=== PATIENT | female | born 1960 | race Caucasian/White ===

== ENCOUNTER → 2017-01-02 | Outpatient (CLI) | payer BC | END | disposition home or self-care (01) | LOC: C.LABSPEC 17:31 | PROVIDERS: ATTEND Family Medicine | DX: S81.802A Unspecified open wound, left lower leg, initial encounter (principal); X58.XXXA Exposure to other specified factors, initial encounter; Z11.59 Encounter for screening for other viral diseases ==

== ENCOUNTER → 2017-03-23 | Outpatient (CLI) | payer BC ==
[2017-03-23 17:59] LABS: CHOLESTEROL/HDL RATIO 4.8; THYROID STIMULATING HORMONE 4.58 uIu/ml (0.300-4.500)
== END ==
LOC: C.LABPBG 12:52
PROVIDERS: ATTEND Family Medicine
DX: Z13.1 Encounter for screening for diabetes mellitus (principal); Z11.59 Encounter for screening for other viral diseases; Z13.220 Encounter for screening for lipoid disorders; E03.9 Hypothyroidism, unspecified

== ENCOUNTER → 2017-10-13 | Outpatient (CLI) | payer BC | END | disposition home or self-care (01) | LOC: C.LABPBG 13:14 | PROVIDERS: ATTEND Family Medicine | DX: E03.9 Hypothyroidism, unspecified (principal) ==

== ENCOUNTER 2018-12-06 13:17 | Inpatient (IN) ==
[2018-12-06] MEDS ORDERED: methylPREDNISolone 125 MG/2 ML VIAL IV STA (13:47)
[2018-12-06] MEDS ORDERED: ALBUT/IPRATROP 3MG/0.5MG NEB 3 ML VIAL NEB STA ×3 (13:47→14:54)
--- NOTE | 2018-12-06 14:01 | Emergency Department Note ---
History of Present Illness General Chief complaint: Sinus Congestion/Pressure Stated complaint: SINUS INF Time Seen by Provider: 12/06/18 13:33 History of Present Illness Maximum Pain Intensity: 4 Patient is a 58-year-old female with past medical history significant for COPD and hypothyroidism who presents the emergency department from [facility] for evaluation of sinus congestion, productive cough and shortness of breath times several days. Patient reports that she has had some sinus congestion, stuffy and a runny nose on and off for "a while." In the last 3 to 4 days, she reports that her symptoms have settled in her chest. She reports chest tightness, shortness of breath and a cough productive of yellow sputum. She had some soreness in her chest with coughing and deep breathing yesterday, this was alleviated with ibuprofen and she has no chest pain at this time. She has been taking Mucinex. Patient is normally on Flovent and Pro Air inhalers, but she has been without her inhalers for about a week. She reports that multiple family members have been sick with similar symptoms. Patient states that she went to [facility] today, hoping to get an antibiotic, she states that they gave her a breathing treatment, and referred her to the emergency department. She was told that her oxygen saturation was low. She normally does not require oxygen. She is never been hospitalized for her COPD. Home Medications Home Medications Medication Instructions Recorded Confirmed Type Flovent HFA 1 puff INHALATION BID PRN 09/02/18 12/06/18 History albuterol sulfate [ProAir HFA] 1 - 2 puff INHALATION Q6H PRN 09/02/18 12/06/18 History clonazepam 0.5 mg PO DIRECTED PRN 09/02/18 12/06/18 History levothyroxine 200 mcg PO QAM 09/02/18 12/06/18 History guaifenesin [Mucinex] 600 mg PO Q12H PRN 12/06/18 12/06/18 History ibuprofen 200 mg PO Q6H PRN 12/06/18 12/06/18 History Allergies Allergy/AdvReac Type Severity Reaction Status Date / Time No Known Allergies Allergy Verified 12/06/18 13:34 Past Med/Surg History Medical History Anemia (Chronic) Chronic obstructive pulmonary disease (Chronic) inhalers prn Hypothyroidism (Chronic) Insomnia (Chronic) Surgical History History of appendectomy (Resolved) History of bilateral tubal ligation (Resolved) History of dacryocystorhinostomy (Resolved) right eye History of dilatation and curettage (Resolved) History of esophagogastroduodenoscopy (EGD) (Resolved) History of tonsillectomy (Resolved) History of tooth extraction (Resolved) all top teeth, some of bottom History of total abdominal hysterectomy and bilateral salpingo-oophorectomy (Resolved) History of wisdom tooth extraction (Resolved) Family History Grandfather (Paternal) Family history of diabetes mellitus Brother Family hx colonic polyps Sister Family hx colonic polyps Father Myocardial infarction Brother Myocardial infarction Stroke Other No family history of adverse response to anesthesia Social History Preferred Language: Honduran Communication Ability: Effective Beliefs That Will Affect Care: None Current Living Situation: Spouse Feels Safe at Home: Yes Smoking Status: Current every day smoker Tobacco Type: cigarettes Cigarettes Per Day: 1ppd Second Hand Exposure: Yes Hx Alcohol Use: Yes Alcohol type: beer Alcohol Intake Frequency Comment: last beer was Thursday, has "a few beers" 1-2 nights a week Hx Substance Use: No Review of Systems A total of 10 systems reviewed and were otherwise negative Physical Exam Vital Signs Vital Signs - 24 hr 12/06/18 13:25 12/06/18 13:58 12/06/18 14:33 Temperature 37.5 C Temperature Source Axillary Sepsis Recent Fever Within 48 Hours No Sepsis New/Unexplained Change in Mental Status No Sepsis Action Taken by Nursing No Action Required Pulse Rate 110 H 97 H Pulse Rate [Right Finger] 102 H Pulse Rate from SpO2 Sensor 95 H Pulse Rhythm Regular Pulse Strength Normal Respiratory Rate 22 18 20 Respiratory Effort / Characteristics Non-Labored Spontaneous Non-Labored Spontaneous Respiratory Depth Normal Respiratory Pattern Regular Blood Pressure 139/74 Blood Pressure Mean 95 Blood Pressure Position Sitting Pulse Oximetry 86 L 92 92 Oxygen Delivery Method Room Air Nasal Cannula Oxygen Flow Rate 2.5 12/06/18 14:40 12/06/18 14:57 12/06/18 15:00 Temperature Temperature Source Sepsis Recent Fever Within 48 Hours Sepsis New/Unexplained Change in Mental Status Sepsis Action Taken by Nursing Pulse Rate 101 H 103 H Pulse Rate [Right Finger] 100 H Pulse Rate from SpO2 Sensor 101 H 104 H Pulse Rhythm Pulse Strength Respiratory Rate 18 24 33 H Respiratory Effort / Characteristics Spontaneous Respiratory Depth Respiratory Pattern Blood Pressure 134/72 Blood Pressure Mean 92 Blood Pressure Position Pulse Oximetry 94 90 90 Oxygen Delivery Method Nasal Cannula Oxygen Flow Rate 2.5 12/06/18 15:16 12/06/18 16:00 Temperature Temperature Source Sepsis Recent Fever Within 48 Hours Sepsis New/Unexplained Change in Mental Status Sepsis Action Taken by Nursing Pulse Rate 108 H Pulse Rate [Right Finger] 99 H Pulse Rate from SpO2 Sensor 105 H Pulse Rhythm Pulse Strength Respiratory Rate 20 23 Respiratory Effort / Characteristics Spontaneous Respiratory Depth Respiratory Pattern Blood Pressure 134/72 Blood Pressure Mean 92 Blood Pressure Position Pulse Oximetry 93 92 Oxygen Delivery Method Nasal Cannula Oxygen Flow Rate 2.5 CONSTITUTIONAL: Patient is a 58-year-old female who is awake and alert and seated on the gurney in no acute distress. O2 sat in triage was 86%. She was on 2 L at the time of exam. O2 sat when oxygen was turned off was 88 to 89% during history and physical exam. EYES: Pupils equal, round, reactive to light and accommodation. EOMs intact without nystagmus. Sclera are anicteric. ENT: Tympanic membranes intact, with normal landmarks. External canals are clear. Oral and nasopharynx are clear. Mucous membranes are moist, no lesions, tongue and gums appear normal. CARDIOVASCULAR: Regular rate and rhythm, with normal S1 and S2, no murmur or gallop or rub is heard. No carotid bruits auscultated. No JVD. Peripheral pulses easily palpable. RESPIRATORY: Breath sounds diminished throughout, with inspiratory and expiratory wheezes noted, primarily on the right. Full and equal chest expansion without accessory muscle use or retractions. INTEGUMENTARY: No lesions or rash, normal skin turgor. LYMPH: No lymphadenopathy. EXTREMITIES: No edema. Course The patient was seen and assessed as above. Old records are reviewed. She has no recent ED visits or hospitalizations. She presents the emergency department for evaluation of a productive cough and shortness of breath. She was noted to be hypoxic in triage with O2 sat of 86%. She is roughly 88% on room air in the exam room, improves to 93% on 2-1/2 L by nasal cannula. IV lock was initiated. Laboratory studies were collected. EKG and chest x-ray were performed. The patient was given Solu-Medrol 125 mg IV and DuoNeb x3. Laboratory studies noted a white count of 14,500 with left shift and bands noted. H&H 14.6 and 42.6. Electrolytes are within normal limits. BUN and creatinine are normal. Troponin is negative x1. Chest x-ray per radiology is suggestion of bibasilar parenchymal infiltrates. EKG notes a normal sinus rhythm at 95 bpm, with nonspecific T wave abnormalities noted in the lateral leads. No old EKGs available for comparison. The patient was reassessed frequently. She was reexamined after nebulizer treatments, and did have improved air movement and decreased wheezing, but she still required oxygen. All laboratory and diagnostic imaging studies were reviewed with attending physician who concurred with the ED work-up. Given the chest x-ray findings, she was given Levaquin 750 mg and ceftriaxone 2 g IV. Wit h chest x-ray findings concerning for pneumonia, and oxygen requirement admission/observation was discussed with the patient and her spouse. Patient was reviewed with the liquor establishment manager. [facility] and [facility]. Administered Medications Acetylcysteine (Mucomyst 20%) 5 ml INH BID EBONY Stop: 01/05/19 20:59 Last Admin: 12/06/18 19:25 Dose: 5 ml Documented by: [id number] Albuterol (Duoneb) 3 ml NEB QIDR EBONY Stop: 01/05/19 19:59 Last Admin: 12/06/18 19:24 Dose: 3 ml Documented by: [id number] Methylprednisolone 60 mg/ (Syringe) 0.96 mls @ 1.5 mls/min IV BID EBONY Stop: 01/05/19 20:59 Last Admin: 12/06/18 21:07 Dose: 1.5 mls/min Documented by: [id number] Discontinued Medications Albuterol (Duoneb) 3 ml NEB NOW STA Stop: 12/06/18 13:48 Last Admin: 12/06/18 13:58 Dose: 3 ml Documented by: [id number] Albuterol (Duoneb) 3 ml NEB NOW STA Stop: 12/06/18 14:17 Last Admin: 12/06/18 14:40 Dose: 3 ml Documented by: [id number] Albuterol (Duoneb) 3 ml NEB NOW STA Stop: 12/06/18 14:55 Last Admin: 12/06/18 15:15 Dose: 3 ml Documented by: [id number] Ceftriaxone Sodium 2,000 mg/ (Dextrose) 70 mls @ 100 mls/hr IV NOW STA Stop: 12/06/18 15:35 Last Infusion: 12/06/18 16:26 Dose: 0 mls/hr Documented by: [id number] Admin: 12/06/18 15:27 Dose: 100 mls/hr Documented by: [id number] Levofloxacin/Dextrose (Levaquin/D5w) 750 mg in 150 mls @ 100 mls/hr IV NOW STA Stop: 12/06/18 16:23 Last Infusion: 12/06/18 17:24 Dose: 0 mls/hr Documented by: [id number] Admin: 12/06/18 15:54 Dose: 100 mls/hr Documented by: [id number] Methylprednisolone (Solumedrol) 125 mg IV NOW STA Stop: 12/06/18 13:48 Last Admin: 12/06/18 14:02 Dose: 125 mg Documented by: [id number] Medical Decision Making Differential Diagnosis Differential diagnosis includes acute myocardial infarction, acute coronary syndrome, myocarditis, pericarditis, pulmonary embolism, pneumonia, pneumothorax, cardiomyopathy, congestive heart failure, anemia, COPD exacerbation, among others. Medical Records Attestation: I reviewed the patient's medical records. Home Medications Current Medication List: was personally reviewed by me Laboratory Data Attestation: I reviewed the patient's lab results. Result diagrams: 12/06/18 14:00 12/06/18 14:00 Lab Results 12/06/18 12/06/18 Range/Units 14:00 14:00 WBC 14.59 H (4.8-10.8) K/uL RBC 4.50 (4.2-5.4) M/uL Hgb 14.6 (12.0-16.0) g/dL Hct 42.6 (37-47) % MCV 94.7 (80-100) fL MCH 32.4 (25-34) pg MCHC 34.3 (32-36) g/dL RDW Std Deviation 45.7 (36.4-46.3) fL RDW Coeff of Jomar 13.2 (11.5-14.5) % Plt Count 244 (130-400) K/uL MPV 9.2 (7.4-10.4) fL Immature Gran % (Auto) 0.3 % Neut % (Auto) 77.4 % Lymph % (Auto) 13.0 % [place] % (Auto) 8.6 % Eos % (Auto) 0.5 % Baso % (Auto) 0.2 % Immature Gran # (Auto) 0.05 H (0.00-0.02) K/uL Neut # (Auto) 11.29 H (1.4-6.5) K/uL Lymph # (Auto) 1.89 (1.2-3.4) K/uL Sierra # (Auto) 1.26 H (0.11-0.59) K/uL Eos # (Auto) 0.07 (0-0.5) K/uL Baso # (Auto) 0.03 (0-0.2) K/uL Sodium 136 (136-145) mmol/L Potassium 3.9 (3.5-5.1) mmol/L Chloride 98 (98-107) mmol/L Carbon Dioxide 29 (21-32) mmol/L Anion Gap 8.0 (3-11) BUN 7 (7-18) mg/dl Creatinine 0.68 (0.6-1.2) mg/dl Est Cr Clr Drug Dosing 97.9 ml/min Est GFR ( Amer) 112.5 Est GFR (Non-Af Amer) 97.1 BUN/Creatinine Ratio 9.8 L (10-20) Glucose 112 H (70-99) mg/dl Calcium 9.3 (8.5-10.1) mg/dl Troponin I < 0.015 (0-0.045) ng/ml Imaging Data Attestation: I personally reviewed and interpreted this imaging study as follows: Radiologist's Impression: XR chest 1V portable CLINICAL HISTORY: COUGH, SOB exam COMPARISON STUDY: No previous studies for comparison. FINDINGS: Mild cardiac [place]. Bibasilar interstitial infiltrates versus somewhat atypical components of congestive failure. Mid and upper lungs are co nsidered clear. IMPRESSION: Bibasilar parenchymal infiltrates versus developing atypical components of congestive heart failure ECG Data Attestation: I personally reviewed and interpreted this ECG as follows: Indication: chest pain and SOB/dyspnea Rate (beats per minute): 95 Rhythm: normal sinus Findings: + other (Nonspecific ST abnormality lateral leads); no acute ischemic change and no ectopy Comparison ECG Date: no prior available Blood Pressure Blood Pressure Findings: Normal blood pressure MDM Narrative See ED Course. Impression & Plan Pneumonia, Hypoxia, COPD exacerbation Discharge Plan Visit Data *Final* Discharge Date/Time: 12/06/18 17:59 Chief Complaint: Sinus Congestion/Pressure Stated Complaint: SINUS INF ED Provider: Terrence Longoria ED Midlevel Provider: Komal Lovelace Discharge Problem: Pneumonia, Hypoxia, COPD exacerbation Patient Disposition: Admitted As Inpatient Discharge Instructions Interventions: ED Discharge Assessment Last Done: 12/06/18 17:59
--- NOTE | 2018-12-06 14:04 | XRay Report ---
XR chest 1V portable CLINICAL HISTORY: COUGH, SOB exam COMPARISON STUDY: No previous studies for comparison. FINDINGS: Mild cardiac [place]. Bibasilar interstitial infiltrates versus somewhat atypical component s of congestive failure. Mid and upper lungs are considered clear. IMPRESSION: Bibasilar parenchymal infiltrates versus developing atypical components of congestive he art failure The above report was generated using voice recognition software. It may contain grammatical, syntax or spelling errors. Electronically signed by: Jhon Marie M.D. 12/06/2018 2:03 PM
[2018-12-06 14:10] LABS: Basophils # (auto) 0.03 K/uL (0-0.2); Basophils % (auto) 0.2 %; Eosinophils # (auto) 0.07 K/uL (0-0.5); Eosinophils % (auto) 0.5 %; Hematocrit (blood only) 42.6 % (37-47); Hemoglobin 14.6 g/dL (12.0-16.0); Immature Granulocytes # (auto) 0.05 K/uL (0.00-0.02); Immature Granulocytes % (auto) 0.3 %; Lymphocytes # (auto) 1.89 K/uL (1.2-3.4); Mean Corpuscular Hgb Conc 34.3 g/dL (32-36); Mean Corpuscular Volume 94.7 fL (80-100); Mean Platelet Volume 9.2 fL (7.4-10.4); Monocytes # (auto) 1.26 K/uL (0.11-0.59); Monocytes % (auto) 8.6 %; Neutrophils # (auto) 11.29 K/uL (1.4-6.5); Neutrophils % (auto) 77.4 %; Platelet Count 244 K/uL (130-400); RDW Coefficient of Variation 13.2 % (11.5-14.5); RDW Standard Deviation 45.7 fL (36.4-46.3); White Blood Count 14.59 K/uL (4.8-10.8)
[2018-12-06 14:26] LABS: BUN Creatinine Ratio 9.8 (10-20); Blood Urea Nitrogen 7 mg/dl (7-18); Calcium 9.3 mg/dl (8.5-10.1); Carbon Dioxide 29 mmol/L (21-32); Chloride 98 mmol/L (98-107); Creatinine Clr Calc Pharmacy 97.9 ml/min; Est GFR (African American) 112.5; Est GFR (Non-African American) 97.1; Glucose 112 mg/dl (70-99); Potassium 3.9 mmol/L (3.5-5.1); Sodium 136 mmol/L (136-145)
[2018-12-06 14:31] LABS: Troponin I < 0.015 ng/ml (0-0.045)
[2018-12-06] MEDS ORDERED: LEVOFLOXACIN/D5W 750 MG/150 ML BAG IV STA (14:54)
[2018-12-06] MEDS ORDERED: cefTRIAXone SODIUM 2,000 MG in DEXTROSE 5% 50 ML IV STA (14:54)
--- NOTE | 2018-12-06 16:31 | History & Physical Report ---
Date of Service December 06, 2018 Assessment & Plan (1) Pneumonia: Noted on CXR Started on levaquin and ceftriaxone, will continue with ceftriaxone for now WBC elevated (2) COPD exacerbation: Nebs, steroids Feeling improved in the ED Will add mucomyst Solumedrol 60mg BID (3) Hypoxia: Likely related to above Monitor on O2 No prior hx of home O2 use (4) Tobacco use disorder: Declines nicotine patch need, will order PRN (5) Hypothyroid: continue home meds (6) Anxiety: PRN clonazepam use as at home States she uses rarely and HS only (7) DVT prophylaxis: SCDs History of Present Illness Primary Care Provider: Susy Soto MD 58 y/o F who was sent to the ED from an urgent care. Pt went to the urgent care because she thought she had a sinus infection and bronchitis "because I always get those". She was seen there and sent to the ED after her O2 was found to be low. Pt states she has had a few weeks of cough, congestion, headache, and mucous production. She was taking mucinex and ibuprofen at home, but this was not helping. She has a rescue inhaler at home but she ran out of it 3-4 days ago and therefor has not been using it. Pt states she woke in the night with chest pain below her L breast that resolved with ibuprofen and has not returned. She has had some wheezing at home also. Pt was given nebs x3, levaquin, ceftriaxone, and solumedrol in the ED. She feels that her sx are improved, but still does not feel well. She feels her breathing has opened up more. Pt denies fever, abd pain, n/v/c/d, LE pain or swelling. Allergies Allergy/AdvReac Type Severity Reaction Status Date / Time No Known Allergies Allergy Verified 12/06/18 13:34 Home Medications Home Medications Medication Instructions Recorded Confirmed Type Flovent HFA 1 puff INHALATION BID PRN 09/02/18 12/06/18 History albuterol sulfate [ProAir HFA] 1 - 2 puff INHALATION Q6H PRN 09/02/18 12/06/18 History clonazepam 0.5 mg PO DIRECTED PRN 09/02/18 12/06/18 History levothyroxine 200 mcg PO QAM 09/02/18 12/06/18 History guaifenesin [Mucinex] 600 mg PO Q12H PRN 12/06/18 12/06/18 History ibuprofen 200 mg PO Q6H PRN 12/06/18 12/06/18 History Past Med/Surg History Medical History Anemia (Chronic) Chronic obstructive pulmonary disease (Chronic) inhalers prn Hypothyroidism (Chronic) Insomnia (Chronic) Surgical History History of appendectomy (Resolved) History of bilateral tubal ligation (Resolved) History of dacryocystorhinostomy (Resolved) right eye History of dilatation and curettage (Resolved) History of esophagogastroduodenoscopy (EGD) (Resolved) History of tonsillectomy (Resolved) History of tooth extraction (Resolved) all top teeth, some of bottom History of total abdominal hysterectomy and bilateral salpingo-oophorectomy (Resolved) History of wisdom tooth extraction (Resolved) Family History Grandfather (Paternal) Family history of diabetes mellitus Brother Family hx colonic polyps Sister Family hx colonic polyps Father Myocardial infarction Brother Myocardial infarction Stroke Other No family history of adverse response to anesthesia Social History Preferred Language: Spanish Communication Ability: Effective Beliefs That Will Affect Care: None Current Living Situation: Spouse Feels Safe at Home: Yes Smoking Status: Current every day smoker Tobacco Type: cigarettes Cigarettes Per Day: 1ppd Second Hand Exposure: Yes (parents smoked) Hx Alcohol Use: Yes Alcohol type: beer Alcohol Intake Frequency Comment: last beer was Thursday, has "a few beers" 1-2 nights a week Hx Substance Use: No Review of Systems Review of Systems: Pertinent positives and negatives reviewed in HPI--all others negative Physical Exam Constitutional: WD/WN, vitals as above Eyes: normal visual lira by confrontation and + anicteric sclerae Neck: normal visual inspection and trachea midline Respiratory: normal respiratory effort; no respiratory distress Auscultation: + crackles; no wheezes tight breath sounds Cardiovascular: Rate/Rhythm: regular rate and regular rhythm Gastrointestinal (Abdomen): Inspection/Auscultation: abdomen not distended Percussion/Palpation: abdomen soft; abdomen nontender Musculoskeletal: Head/Neck/Chest: normocephalic and head atraumatic negative for edema, peripheral pulses intact Skin: no rashes, warm and dry Neurologic: awake; not confused Speech / Cognition: normal speech Psychiatric: A+Ox3, euthymic affect Results & Data Vital Signs (Past 12 Hours) Vital Signs Temp Pulse Pulse Resp BP Pulse Ox 12/06/18 15:16 99 H 20 93 12/06/18 15:00 103 H 33 H 90 12/06/18 14:57 101 H 24 134/72 90 12/06/18 14:40 100 H 18 94 12/06/18 14:33 97 H 20 92 12/06/18 13:58 102 H 18 92 12/06/18 13:25 37.5 C 110 H 22 139/74 86 L Diagnostic Findings CXR: bibasliar PNA Code Status & VTE Plan Code Status Full code, although pt states no prolonged mechanical life support, feeding tubes, etc VTE Prophylaxis Plan VTE Prophylaxis will be ordered: Yes PG Care Time/CCT Total # of Minutes Spent Total Time Spent with Patient: Total time spent is greater than 50% in coordination of care (as documented) at patient's floor/unit and/or counseling patient: (1) Pneumonia Laterality: bilateral Lung location: unspecified part of lung Pneumonia type: due to unspecified organism Qualified Code(s): J18.9 - Pneumonia, unspecified organism
[2018-12-06] MEDS ORDERED: NICOTINE 21 MG/24 HR TDSY TD PRN (17:57)
[2018-12-06] MEDS ORDERED: clonazePAM 0.5 MG TAB PO PRN (17:57)
[2018-12-06] MEDS ORDERED: MAGNESIUM HYDROXIDE SUSP 30 ML UDC PO PRN (17:57)
[2018-12-06] MEDS ORDERED: FLUTICASONE HFA 110MCG INHALER INH PRN (17:57)
[2018-12-06] MEDS ORDERED: IBUPROFEN 200 MG TAB PO PRN (17:57)
[2018-12-06] MEDS ORDERED: ACETAMINOPHEN 325 MG TAB PO PRN (17:57)
[2018-12-06] MEDS ORDERED: ALBUTEROL HFA 8 GM INHALER INH PRN (17:57)
[2018-12-06] MEDS ORDERED: ONDANSETRON INJ 2 MG/ML 2 ML VIAL IV PRN (17:57)
[2018-12-06] MEDS: ALBUT/IPRATROP 3MG/0.5MG NEB 3 ML VIAL NEB SCH (19:24)
[2018-12-06] MEDS: ACETYLCYSTEINE 20% INHAL SOLN ***DISPENSED BY RESP. INH SCH (19:25)
[2018-12-06] MEDS ORDERED: ACETYLCYSTEINE 20% INHAL SOLN ***DISPENSED BY RESP. INH SCH (20:00)
[2018-12-06] MEDS: methylPREDNISolone 60 MG in SYRINGE 0 ML IV SCH (21:07)
[2018-12-07] MEDS: LEVOTHYROXINE SODIUM 200 MCG TABLET PO SCH (05:30)
[2018-12-07 06:21] LABS: Basophils # (auto) 0.01 K/uL (0-0.2); Basophils % (auto) 0.1 %; Hematocrit (blood only) 43.2 % (37-47); Hemoglobin 14.7 g/dL (12.0-16.0); Immature Granulocytes # (auto) 0.07 K/uL (0.00-0.02); Immature Granulocytes % (auto) 0.5 %; Lymphocytes # (auto) 1.28 K/uL (1.2-3.4); Lymphocytes % (auto) 9.3 %; Mean Corpuscular Volume 93.1 fL (80-100); Mean Platelet Volume 9.5 fL (7.4-10.4); Monocytes # (auto) 0.49 K/uL (0.11-0.59); Monocytes % (auto) 3.6 %; Neutrophils # (auto) 11.94 K/uL (1.4-6.5); Neutrophils % (auto) 86.5 %; Platelet Count 276 K/uL (130-400); RDW Coefficient of Variation 13.1 % (11.5-14.5); RDW Standard Deviation 44.4 fL (36.4-46.3); Red Blood Count 4.64 M/uL (4.2-5.4); White Blood Count 13.79 K/uL (4.8-10.8)
[2018-12-07] MEDS: ALBUT/IPRATROP 3MG/0.5MG NEB 3 ML VIAL NEB SCH ×4 (06:57→19:29)
[2018-12-07] MEDS: ACETYLCYSTEINE 20% INHAL SOLN ***DISPENSED BY RESP. INH SCH ×2 (06:57→19:29)
[2018-12-07] MEDS: methylPREDNISolone 60 MG in SYRINGE 0 ML IV SCH ×2 (08:11→20:55)
[2018-12-07] MEDS ORDERED: LEVOFLOXACIN/D5W 750 MG/150 ML BAG IV SCH (16:00)
--- NOTE | 2018-12-07 18:07 | Hospitalist Progress Note ---
Date of Service December 07, 2018 Assessment & Plan (1) Pneumonia: Noted on CXR with bibasilar infiltrates, with productive sputum and acute hypoxia. Is already improving -Continue Levaquin 750 mg once daily x7-day course. Will change to p.o. for tomorrow-last day would be 12/12 -Continue bronchodilators scheduled nebulizers and can discontinue acetylcysteine nebs -Collect sputum culture -Continue supplemental oxygen to keep pulse ox greater than 88-92% -Would follow chest x-ray to resolution given long smoking history to ensure infiltrates resolve (2) COPD exacerbation: With wheezing and hypoxia on examination Continues to smoke on a daily basis but is contemplating quitting -Continue nicotine patch as needed and encouraged cessation -Continue nebs, steroids - will prescribe Spiriva and Symbicort upon discharge -Also asked case management to arrange for home nebulizer and I will also prescribe her nebulized albuterol for that (3) Hypoxia: Acute respiratory failure with hypoxia secondary to COPD and pneumonia as above No prior hx of home O2 use -Continue treatment for COPD pneumonia as above - will need two-step walking test in the morning if still requiring oxygen prior to discharge to home (4) Tobacco use disorder: As above -Nicotine patch ordered as needed (5) Hypothyroid: No TSH in over a year in the lab history Continue home levothyroxine -Check TSH in the morning (6) Anxiety: PRN clonazepam use as at home States she uses rarely and HS only (7) Sinus congestion: Possibly an acute sinusitis based on symptoms she is describing -Start nasal saline -On Levaquin as above for pneumonia which should cover for sinusitis as well (8) DVT prophylaxis: SCDs, add Lovenox Disposition-much improved, still with wheezing and hypoxia throughout If continues to improve, could likely discharged home tomorrow. May need home oxygen. Subjective Patient feeling much improved, feels less short of breath. Still coughing up white to clear mucus. Her previous bilateral pleuritic type chest pain underneath the ribs and in the back is now resolved. She denies diarrhea or constipation, no abdominal pain. Has a mild headache, not lightheaded. Her appetite is good. She reports she has a family members old nebulizer at home but has no equipment or medication to use with it. She also ran out of her Symbicort and Spiriva at home and would like refills of these upon discharge. She is hopeful to go home tomorrow Review of Systems Review of Systems: All systems reviewed & are unremarkable except as noted in HPI & below Physical Exam Constitutional: WD/WN, vitals as above + morbidly obese Eyes: PERRL, conjunctivae normal, anicteric sclerae ENMT: external ear and nose normal, oropharynx normal Neck: trachea midline, no thyromegaly Respiratory: normal respiratory effort; no labored breathing Auscultation: + diminished lung sounds (throughout) and + wheezes (bilateral all lung lira,+ exp wheezes) Cardiovascular: RRR, no murmur, no edema Gastrointestinal (Abdomen): normal bowel sounds, soft, nontender, no hepatosplenomegaly Musculoskeletal: Extremities: extremities normal to inspection; no cyanosis and no clubbing Skin: no rashes, warm and dry Neurologic: moves all extremities and awake; no focal motor deficits Psychiatric: A+Ox3, euthymic affect Results & Data Vital Signs (Past 12 Hours) Vital Signs Temp Pulse Resp BP Pulse Ox 12/07/18 15:44 88 20 92 12/07/18 15:21 36.9 C 101 H 19 129/77 90 12/07/18 11:21 68 18 92 12/07/18 08:17 88 L 12/07/18 08:13 36.8 C 78 18 112/64 12/07/18 06:58 70 18 92 Laboratory Results 12/07/18 Range/Units 05:45 WBC 13.79 H (4.8-10.8) K/uL RBC 4.64 (4.2-5.4) M/uL Hgb 14.7 (12.0-16.0) g/dL Hct 43.2 (37-47) % MCV 93.1 (80-100) fL MCH 31.7 (25-34) pg MCHC 34.0 (32-36) g/dL RDW Std Deviation 44.4 (36.4-46.3) fL RDW Coeff of Jomar 13.1 (11.5-14.5) % Plt Count 276 (130-400) K/uL MPV 9.5 (7.4-10.4) fL Immature Gran % (Auto) 0.5 % Neut % (Auto) 86.5 % Lymph % (Auto) 9.3 % [place] % (Auto) 3.6 % Eos % (Auto) 0.0 % Baso % (Auto) 0.1 % Immature Gran # (Auto) 0.07 H (0.00-0.02) K/uL Neut # (Auto) 11.94 H (1.4-6.5) K/uL Lymph # (Auto) 1.28 (1.2-3.4) K/uL [place] # (Auto) 0.49 (0.11-0.59) K/uL Eos # (Auto) 0.00 (0-0.5) K/uL Baso # (Auto) 0.01 (0-0.2) K/uL Diagnostic Findings 12/07/18 Range/Units 05:45 WBC 13.79 H (4.8-10.8) K/uL RBC 4.64 (4.2-5.4) M/uL Hgb 14.7 (12.0-16.0) g/dL Hct 43.2 (37-47) % MCV 93.1 (80-100) fL MCH 31.7 (25-34) pg MCHC 34.0 (32-36) g/dL RDW Std Deviation 44.4 (36.4-46.3) fL RDW Coeff of Jomar 13.1 (11.5-14.5) % Plt Count 276 (130-400) K/uL MPV 9.5 (7.4-10.4) fL Immature Gran % (Auto) 0.5 % Neut % (Auto) 86.5 % Lymph % (Auto) 9.3 % [place] % (Auto) 3.6 % Eos % (Auto) 0.0 % Baso % (Auto) 0.1 % Immature Gran # (Auto) 0.07 H (0.00-0.02) K/uL Neut # (Auto) 11.94 H (1.4-6.5) K/uL Lymph # (Auto) 1.28 (1.2-3.4) K/uL [place] # (Auto) 0.49 (0.11-0.59) K/uL Eos # (Auto) 0.00 (0-0.5) K/uL Baso # (Auto) 0.01 (0-0.2) K/uL PG Care Time/CCT Total # of Minutes Spent Total Time Spent with Patient: Total time spent is greater than 50% in coordination of care (as documented) at patient's floor/unit and/or counseling patient: (1) Pneumonia Laterality: bilateral Lung location: unspecified part of lung Pneumonia type: due to unspecified organism Qualified Code(s): J18.9 - Pneumonia, unspecified organism
[2018-12-07] MEDS ORDERED: SODIUM CHLORIDE 0.65% NA SOLN 45 ML (OCEAN) NAE PRN (20:39)
[2018-12-07] MEDS: ENOXAPARIN INJ 40 MG/0.4 ML SYR SQ SCH (20:55)
[2018-12-08] MEDS: LEVOTHYROXINE SODIUM 200 MCG TABLET PO SCH (05:37)
[2018-12-08 06:28] LABS: Basophils # (auto) 0.01 K/uL (0-0.2); Basophils % (auto) 0.1 %; Hematocrit (blood only) 41.3 % (37-47); Hemoglobin 13.9 g/dL (12.0-16.0); Immature Granulocytes # (auto) 0.12 K/uL (0.00-0.02); Immature Granulocytes % (auto) 0.6 %; Lymphocytes # (auto) 1.24 K/uL (1.2-3.4); Lymphocytes % (auto) 6.6 %; Mean Corpuscular Hgb Conc 33.7 g/dL (32-36); Mean Platelet Volume 9.2 fL (7.4-10.4); Monocytes # (auto) 0.96 K/uL (0.11-0.59); Monocytes % (auto) 5.1 %; Neutrophils # (auto) 16.36 K/uL (1.4-6.5); Neutrophils % (auto) 87.6 %; Platelet Count 281 K/uL (130-400); RDW Coefficient of Variation 13.3 % (11.5-14.5); RDW Standard Deviation 45.4 fL (36.4-46.3); Red Blood Count 4.44 M/uL (4.2-5.4); White Blood Count 18.69 K/uL (4.8-10.8)
[2018-12-08 06:39] LABS: INR 1.1 (0.9-1.1); Prothrombin Time 11.2 Seconds (9.0-12.0)
[2018-12-08 07:00] LABS: BUN Creatinine Ratio 26.4 (10-20); Creatinine Clr Calc Pharmacy 123.3 ml/min; Est GFR (Non-African American) 100.1; Potassium 4.5 mmol/L (3.5-5.1)
[2018-12-08 07:02] VITALS: TEMP 97.7
[2018-12-08] MEDS: ALBUT/IPRATROP 3MG/0.5MG NEB 3 ML VIAL NEB SCH ×2 (07:26→11:06)
[2018-12-08] MEDS: ENOXAPARIN INJ 40 MG/0.4 ML SYR SQ SCH (08:29)
[2018-12-08] MEDS: methylPREDNISolone 60 MG in SYRINGE 0 ML IV SCH (08:30)
[2018-12-08 09:57] VITALS: O2SAT 90
[2018-12-08 11:07] VITALS: PULSE 74
--- NOTE | 2018-12-08 13:28 | Discharge Summary ---
Date of Service December 08, 2018 Admission HPI Per Admitting Provider 58 y/o F who was sent to the ED from an urgent care. Pt went to the urgent care because she thought she had a sinus infection and bronchitis "because I always get those". She was seen there and sent to the ED after her O2 was found to be low. Pt states she has had a few weeks of cough, congestion, headache, and mucous production. She was taking mucinex and ibuprofen at home, but this was not helping. She has a rescue inhaler at home but she ran out of it 3-4 days ago and therefor has not been using it. Pt states she woke in the night with chest pain below her L breast that resolved with ibuprofen and has not returned. She has had some wheezing at home also. Pt was given nebs x3, levaquin, ceftriaxone, and solumedrol in the ED. She feels that her sx are improved, but still does not feel well. She feels her breathing has opened up more. Pt denies fever, abd pain, n/v/c/d, LE pain or swelling. Principal Diagnosis Pneumonia, COPD Exacerbation Discharge Exam Constitutional WD/WN, vitals as above + morbidly obese Eyes PERRL, conjunctivae normal, anicteric sclerae ENMT external ear and nose normal, oropharynx normal Neck trachea midline, no thyromegaly Respiratory normal respiratory effort; no labored breathing Auscultation: + diminished lung sounds (throughout) and + wheezes (bilateral, faint, improved from previous) Cardiovascular RRR, no murmur, no edema Gastrointestinal (Abdomen) normal bowel sounds, soft, nontender, no hepatosplenomegaly Musculoskeletal Extremities: extremities normal to inspection; no cyanosis and no clubbing Skin no rashes, warm and dry Neurologic moves all extremities and awake; no focal motor deficits Psychiatric A+Ox3, euthymic affect Discharge Data Allergies Allergy/AdvReac Type Severity Reaction Status Date / Time No Known Allergies Allergy Verified 12/17/18 09:11 Consultations None Procedures Performed CXR Hospital Course (1) Pneumonia: Noted on CXR with bibasilar infiltrates, with productive sputum and acute hypoxia. Is continuing to be improving -Continue Levaquin 750 mg once daily x7-day course-last day would be 12/12 -Continue bronchodilators, scheduled nebulizers - sputum culture not collected due to too much saliva in sample -Continue supplemental oxygen to keep pulse ox greater than 88-92%-needs home O2 -Would follow chest x-ray to resolution given long smoking history to ensure infiltrates resolve (2) COPD exacerbation: With wheezing and hypoxia on examination-improving Continues to smoke on a daily basis but is contemplating quitting -Continue nicotine patch as needed and encouraged cessation -Continue nebs, steroids - will prescribe Spiriva and Symbicort upon discharge -Also asked case management to arrange for home nebulizer and I will also prescribe her nebulized albuterol for that (3) Hypoxia: Acute respiratory failure with hypoxia secondary to COPD and pneumonia as above No prior hx of home O2 use -Continue treatment for COPD pneumonia as above - qualifies for home O2 upon discharge-wean off as per PCP when able to (4) Tobacco use disorder: As above -Nicotine patch ordered as needed (5) Hypothyroid: TSH here is 0.3 Continue home levothyroxine -follow with PCP (6) Anxiety: PRN clonazepam use as at home States she uses rarely and HS only (7) Sinus congestion: Possibly an acute sinusitis based on symptoms she is describing -Started nasal saline, steroids -On Levaquin as above for pneumonia which should cover for sinusitis as well (8) DVT prophylaxis: SCDs, Lovenox were provided Disposition-much improved, stable for dc to home with home O2 Total Time Total Time Spent Total Time Spent (In Minutes): >30 min Total Time Includes: Examination of the Patient, Discharge Planning and Medication Reconciliation Discharge Plan Discharge Items Patient Disposition: Home - Self-Care Reason For Visit: PNA/COPD EXACERBATION Discharge Diagnosis: Pneumonia, COPD exacerbation, acute hypoxic respiratory failure Condition: Fair Discharge Goals: Decrease discomfort, Diagnostic testing, Improve disease control, Learn about illness and Therapeutic intervention Activity: As commented below Lifting: Gradually increase as tolerated Bathing: No limitations Exercise/Sports: Gradually increase as tolerated Non-emergency contact: Primary Care Provider Call non-emergency contact if: you have any medication questions, your symptoms worsen and your temperature is above 101 Follow-up/Referrals: Susy Soto MD [Primary Care Provider] - 12/17/18 9:15 am (Please, follow up at Dr. Soto's office with her associate, Dr. Fer Zarate, on ThursdayDecember 17 at 9:15 am. *If you need to change this appointment, call their office at [phone].) Diet: Regular Addtl Provider Instructions: You were admitted with low oxygen levels and found to have pneumonia and an exacerbation of your COPD. You were treated with antibiotics, nebulized medications, and steroids. Please finish out the course of antibiotics with levofloxacin 750 mg by mouth once daily for 5 more days. Please finish out a course of prednisone at 60 mg for 2 days, then 50 mg for 2 days, then 40 mg for 2 days, then 30 mg for 2 days, then 20 mg x 2 days, then 10 mg x 2 days, then stop. A nebulizer machine will be delivered to you and you can continue to use albuterol nebulizers 4 times throughout the day for the next week and then you can use them as needed for shortness of breath, cough, or wheezing. Please restart on Spiriva 1 puff once daily to be used every day, no matter how you are feeling. Follow-up with your primary care physician as scheduled for you within 1 to 2 weeks. You were started on oxygen to be used continuously. You will use 2 L at rest and 3 L with any activity or exertion. Your primary care physician can advise you as to when it is safe for you to stop using the oxygen. Above all, it is most important that you immediately quit smoking cigarettes. Prescriptions: New levofloxacin 750 mg Tablet 750 mg PO DAILY@1600 Qty: 5 RF: 0 sodium chloride [Saline Mist] 0.65 % Aerosol,[place] 2 sprays JODI Q1H PRN (Reason: nasal congestion) Qty: 30 RF: 0 prednisone 10 mg tablet 60 mg PO DAILY Qty: 42 RF: 0 Spiriva with HandiHaler 18 mcg capsule, w/inhalation device 1 cap INH DAILY Qty: 30 RF: 0 albuterol sulfate 2.5 mg /3 mL (0.083 %) solution for nebulization 2.5 mg INH QID PRN (Reason: shortness of breath or wheezing) Qty: 180 RF: 0 Continued levothyroxine 200 mcg Capsule 200 mcg PO QAM RF: 0 ibuprofen 200 mg Tablet 200 mg PO Q6H PRN (Reason: Pain) RF: 0 guaifenesin [Mucinex] 600 mg Tablet Extended Release 12hr 600 mg PO Q12H PRN (Reason: Congestion) RF: 0 Discontinued Flovent HFA 110 mcg/actuation Hfa Aerosol Inhaler 1 puff INHALATION BID PRN (Reason: Shortness Of Breath) RF: 0 No Action albuterol sulfate [ProAir HFA] 90 mcg/actuation HFA aerosol inhaler 1 - 2 puff INHALATION Q6H PRN (Reason: Shortness Of Breath) Qty: 6.7 RF: 5 clonazepam 0.5 mg tablet 0.5 mg PO DIRECTED PRN (Reason: Insomnia) Qty: 30 RF: 0 Visit Report Forms: Smoking Cessation Stand-Alone Forms: [facility] Discharge Orders: Discharge Order (Routine); Ordered 12/08/18 Ordered By: Yanet Frazier Admission Data Admit Date/Time: 12/06/18 16:21 Attending Provider: Yanet Frazier Admit Provider: Christina Dean Primary Care Provider: Susy Soto Other Providers: Christina Dean Service: Medical Other Interventions: Discharge Summary Assessment (RN) Last Done: 12/08/18 13:30 Pending Studies at Discharge: No DC Date/Time DO NOT enter until pt leaves facility: 12/08/18 14:23
[2018-12-08 13:31] VITALS: BP 126/78
[2018-12-08] MEDS ORDERED: levoFLOXacin 750 MG TAB PO SCH (16:00)
== END 2018-12-08 14:23 | disposition home or self-care (01) | DRG 193 ==
LOC: ED 13:17 → 2N 16:21 → SUATTDRO 16:21 → 2N 17:59
DX: G47.00 Insomnia, unspecified; Z83.3 Family history of diabetes mellitus; F17.210 Nicotine dependence, cigarettes, uncomplicated; J18.9 Pneumonia, unspecified organism; Z82.49 Family history of ischemic heart disease and other diseases of the circulatory system; J44.1 Chronic obstructive pulmonary disease with (acute) exacerbation; J96.01 Acute respiratory failure with hypoxia; D64.9 Anemia, unspecified; E03.9 Hypothyroidism, unspecified

== ENCOUNTER 2023-10-26 20:31 | Inpatient (IN) ==
[2023-10-26 21:14] LABS: Hematocrit (blood only) 38.9 % (37.0-47.0); Mean Corpuscular Hemoglobin 28.8 pg (25.0-34.0); Mean Corpuscular Hgb Conc 33.4 g/dL (32.0-36.0); Mean Corpuscular Volume 86.3 fL (80.0-100.0); Mean Platelet Volume 9.3 fL (9.4-12.4); Platelet Count 119 K/uL (130-400); RDW Standard Deviation 40.7 fL (36.4-46.3); Red Blood Count 4.51 M/uL (4.20-5.40); White Blood Count 11.92 K/ul (4.8-10.8)
[2023-10-26 21:32] LABS: Alanine Aminotransferase 17 U/L (7-52); Albumin Globulin Ratio 1.4 (0.9-2); Alkaline Phosphatase 108 U/L (34-104); Anion Gap 7 (3-11); Aspartate Aminotransferase 16 U/L (13-39); BUN Creatinine Ratio 14.3 (10-20); Bilirubin,Total 0.6 mg/dl (0.2-1.0); Blood Urea Nitrogen 7 mg/dl (6-23); Calcium 9.3 mg/dl (8.6-10.3); Carbon Dioxide 30 mmol/L (21-32); Chloride 97 mmol/L (98-107); Est GFR (African American) 121.9 ml/min; Est GFR (Non-African American) 105.2 ml/min; Globulin 2.9 gm/dl (2.5-4.0); Glucose 120 mg/dl (70-99(Fasting)); Potassium 4.1 mmol/L (3.5-5.1); Sodium 134 mmol/L (136-145); Total Protein 6.9 gm/dl (6.0-8.3)
[2023-10-26 21:38] LABS: Troponin I High Sensitivity 3.7 pg/ml (0-14)
[2023-10-26 21:43] LABS: Partial Thromboplastin Ratio 0.9; Partial Thromboplastin Time 25 Seconds (21-31); Prothrombin Time 10.7 Seconds (9.0-12.0)
[2023-10-26 22:25] LABS: ALC (manual) 4.53 K/uL (1.2-3.4); ANC (manual) 6.68 K/uL (1.4-6.5); Basophils # (manual) 0.12 K/uL (0-0.2); Basophils % (manual) 1 %; Eosinophils # (manual) 0.24 K/uL (0-0.50); Eosinophils % (manual) 2 %; Lymphocytes # (manual) 2.26 K/uL (1.2-3.4); Lymphocytes % (manual) 19 %; Monocytes # (manual) 0.36 K/uL (0.11-0.59); Monocytes % (manual) 3 %; Neutrophils # (manual) 6.68 K/uL (1.40-6.50); Neutrophils % (manual) 56 %; RBC Morphology Unremarkable; Reactive Lymphocytes # (manual) 2.26 K/uL; Reactive Lymphocytes % (manual) 19 %
[2023-10-27] MEDS: OPTIRAY 320 125ml IV ONE (00:41)
--- NOTE | 2023-10-27 00:42 | Emergency Department Note ---
Impression & Plan Bilateral pneumonia, Hypoxia, Abdominal aortic aneurysm, Abdominal pain, left upper quadrant Admit to the [facility] ED Provider Note NAME: HAILE ALMEIDA AGE: 62 SEX: Female INFORMANT: Patient ED PROVIDER(S): Dianna Tuttle DO CHIEF COMPLAINT: Left upper quadrant abdominal pain PLAN: Disposition: Admit to the [facility] MEDICAL DECISION MAKING: This is a 62-year-old female patient presents to the emergency department with left upper quadrant abdominal pain and left shoulder pain. The patient has a history of COPD and has had increasing shortness of breath over the past 2 days. She has noticed left upper quadrant abdominal pain, and left shoulder pain. Chest x-ray shows evidence of bibasilar infiltrates. The patient's O2 saturation was 86% with any type of exertion. She had moderate discomfort in her left upper quadrant of her abdomen which required IV analgesia for pain relief. Laboratory studies revealed mild leukocytosis with a white count of 11.8. H&H were stable. Coagulation studies were normal. Troponin was negative. On CT scan of the abdomen/pelvis, there was splenomegaly but no other findings in the left upper quadrant of the abdomen. Of note, the patient had 2 abdominal aortic aneurysms which had never been previously diagnosed. The patient does give a family history of other family members with aneurysms. For the diagnosis of bilateral pneumonias, the patient was treated with IV antibiotics. She remained on supplemental oxygen and was started on IV steroids. [facility] for [facility] care. Care/management discussed with: The patient and her along with the manager golf and the [facility] Triage Nursing notes: reviewed and agree with them. Vital Signs: reviewed and remarkable for hypertension and hypoxia Chronic Medical/Social Conditions affecting care: COPD Differential Diagnosis: Pneumonia, COPD exacerbation, splenic rupture, gastritis Diagnostics, independently interpreted by me: ECG: Normal sinus rhythm at a rate of [address] segment elevation or signs of ischemia. There is no ectopy. Cardiac Monitoring: Normal sinus rhythm at a rate of 86 Imaging studies: Portable chest x-ray: Bibasilar infiltrates as per my independent interpretation HPI: 62 year old Female arrives for evaluation of shortness of breath and left upper quadrant abdominal pain. Patient describes increasing shortness of breath and left upper quadrant abdominal pain over the past 24 hours. Patient has a longstanding history of COPD. She has a chronic occasionally productive cough. She does not wear home oxygen. Upon presentation to the ER, the patient was hypoxic with an O2 saturation of 86% with walking back to the room. PAST MEDICAL HISTORY: See Below, PAST SURGICAL HISTORY: See Below, SOCIAL HISTORY: See Below, HOME MEDICATIONS: See list ALLERGIES: None VITALS: See Below PHYSICAL EXAMINATION: HEENT: Head - normocephalic and atraumatic. Pupils are equal, round, and reactive to light. Extraocular eye muscles are intact, and sclera are anicteric. Nose - moist nasal mucosa without discharge. Mouth - moist buccal mucosa. Oropharynx is nonerythematous and there is no tonsillar exudate or edema noted. Neck: Supple; no JVD, nuchal rigidity, cervical lymphadenopathy, or auscultated bruits. Heart: Regular rate and rhythm. There is a normal S1 and S2 with no murmurs, clicks, or gallops appreciated. Lungs: Diminished breath sounds in all lung lira with minimal end expiratory wheeze. Abdomen: Soft, moderately distended with good bowel sounds. There is exquisite tenderness to palpation of the left upper quadrant of the abdomen. There is no guarding, rigidity, or rebound noted. Extremities: No evidence of cyanosis, clubbing, or edema. There are easily palpable peripheral pulses. Skin: warm and dry with good turgor and no rashes. Emergency department treatment: dough molder, supplemental oxygen, IV fentanyl, IV Zofran, IV Solu-Medrol, IV Levaquin Emergency department course: The patient was evaluated in room C8. A complete history and physical was performed. Portable chest x-ray was performed. An order was placed for continuous cardiac monitoring. The patient was in a normal sinus rhythm at a rate of 86. A twelve-lead EKG was obtained as described above. Patient remained on supplemental oxygen because of her hypoxia. She was given a dose of IV fentanyl for the pain in her left upper quadrant of her abdomen. She was given a dose of IV Zofran to prevent nausea. Patient went for CT scan of the abdomen/pelvis. She was given a dose of IV Solu-Medrol and IV Levaquin for the bilateral pulmonary infiltrates. Past Med/Surg History Problem List (Updated 10/27/23 @ 02:36 by Dianna A Botti, DO) Abdominal pain, left upper quadrant (Acute) Abdominal aortic aneurysm (Acute) Hypoxia (Acute) Bilateral pneumonia (Acute) Dyslipidemia Type 2 diabetes mellitus History of colon polyps Hypothyroidism (Chronic) COPD (chronic obstructive pulmonary disease) (Chronic) Hyperglycemia Tobacco use disorder (Chronic) Anxiety (Chronic) High triglycerides (Chronic) Medical History Anemia Anxiety Chronic obstructive pulmonary disease High triglycerides Hyperglycemia Hypothyroidism Insomnia Tobacco use disorder Surgical History History of appendectomy History of bilateral tubal ligation History of colonoscopy History of dacryocystorhinostomy History of dilatation and curettage History of esophagogastroduodenoscopy (EGD) History of hysterectomy History of tonsillectomy History of tooth extraction History of total abdominal hysterectomy and bilateral salpingo-oophorectomy History of wisdom tooth extraction Family History Grandfather (Paternal) Family history of diabetes mellitus Brother Family hx colonic polyps Sister Family hx colonic polyps Father Myocardial infarction Lung cancer Hypertension Brother Myocardial infarction Stroke Hypertension Aunt Breast cancer Mother Environmental allergies Malignant neoplasm of urinary bladder Thyroid disease Uncle Malignant neoplasm of urinary bladder Aunt Thyroid disease Other Migraines No family history of adverse response to anesthesia Denies family history of Ovarian cancer Prostate cancer Colorectal cancer Social History (Updated 01/09/23 @ 13:03 by SMITH Groves) Smoking Status: Current every day smoker Tobacco Type: Cigarettes Age Started Using Tobacco: 15; Cigarettes Per Day: 5 CIGS A DAY; Second Hand Exposure: No; Do You Dip or Chew Tobacco: No; Hx Alcohol Use: Yes Alcohol type: beer Alcohol Intake Frequency Comment: last beer was Thursday, has "a few beers" 1-2 nights a week Hx Substance Use: No Preferred Language: Georgian Communication Ability: Effective Visual Impairment: No Limitations Hearing Ability: Normal Accounts Receivable Administrator Required: No Beliefs That Will Affect Care: None marital status: Current Living Situation: Spouse current occupational status: employed current occupation: [employer] Feels Safe at Home: Yes Childhood Exposure to Second-Hand Smoke: Yes Diet: regular Dental Care, Regularly: Yes Physical Activity Frequency: 1-2 Times per Week Seatbelt Use: sometimes Sunscreen Use: Yes Assistive Devices: Denture - Upper and Glasses Allergies Allergies Allergy/AdvReac Type Severity Reaction Status Date / Time No Known Allergies Allergy Verified 10/27/23 01:51 Home Meds Home Medications Medication Instructions Recorded Confirmed guaifenesin 600 mg tablet, 600 mg PO Q12H PRN Congestion 12/06/18 10/27/23 extended release 12 hr (Mucinex) ibuprofen 200 mg tablet 200 mg PO Q6H PRN Pain 12/06/18 10/27/23 Previous Rx's Medication Instructions Recorded sodium chloride 0.65 % nasal spray 2 sprays JODI Q1H PRN nasal 12/08/18 aerosol (Saline Mist) congestion #30 mL albuterol sulfate 90 mcg/actuation 1 - 2 puff inhalation Q6H PRN 10/04/21 aerosol inhaler (ProAir HFA) Shortness Of Breath #6.7 grams albuterol sulfate 2.5 mg/3 mL 2.5 mg (3 mL) inhalation QID PRN 10/10/22 (0.083 %) solution for nebulization shortness of breath or wheezing #180 mL atorvastatin 20 mg tablet 20 mg PO QPM #90 tabs 07/17/23 levothyroxine 200 mcg tablet 200 mcg PO DAILY #90 tabs 07/17/23 prednisone 10 mg tablet See Rx Instructions PO DAILY #30 07/17/23 tabs umeclidinium 62.5 mcg/actuation 1 inh inhalation Q24H #30 ea 07/30/23 blister powder for inhalation (Incruse Ellipta) Results & Data (ED) Vital Signs Vital Signs - 24 hr 10/26/23 20:32 10/26/23 22:00 10/26/23 22:01 Temperature 36.6 C Temperature Source Temporal Artery Scan Pulse Rate 100 H 85 Pulse Rate [Apical] Pulse Rhythm Pulse Rhythm [Apical] Pulse Strength [Apical] Respiratory Rate 22 Respiratory Effort / Characteristics Non-Labored Respiratory Depth Normal Respiratory Pattern Regular Blood Pressure 147/75 H Blood Pressure [Right Arm] Blood Pressure Mean 99 Blood Pressure Mean [Right Arm] Blood Pressure Position [Right Arm] Pulse Oximetry 90 86 L Oxygen Delivery Method Room Air Room Air Oxygen Flow Rate 0 Sepsis Recent Fever Within 48 Hours No Sepsis New/Unexplained Change in Mental Status N/A Sepsis Action Taken by Nursing No Action Required Oxygen Flow Rate - Titration 2 Pulse Oximetry Post Tiitration 93 05/20/24 22:01 10/26/23 22:12 10/27/23 01:49 Temperature Temperature Source Pulse Rate 82 82 Pulse Rate [Apical] 80 Pulse Rhythm Regular Pulse Rhythm [Apical] Regular Pulse Strength [Apical] Normal Respiratory Rate 20 Respiratory Effort / Characteristics Non-Labored Spontaneous Respiratory Depth Normal Respiratory Pattern Regular Blood Pressure Blood Pressure [Right Arm] 172/143 H Blood Pressure Mean Blood Pressure Mean [Right Arm] 152 Blood Pressure Position [Right Arm] Sitting Pulse Oximetry 93 97 Oxygen Delivery Method Nasal Cannula Nasal Cannula Oxygen Flow Rate 2 2 Sepsis Recent Fever Within 48 Hours Sepsis New/Unexplained Change in Mental Status Sepsis Action Taken by Nursing Oxygen Flow Rate - Titration Pulse Oximetry Post Tiitration Laboratory Data 10/26/23 20:45 10/26/23 20:45 Lab Results 10/26/23 Range/Units 20:45 WBC 11.92 H (4.8-10.8) K/ul RBC 4.51 (4.20-5.40) M/uL Hgb 13.0 (12.0-16.0) g/dl Hct 38.9 (37.0-47.0) % MCV 86.3 (80.0-100.0) fL MCH 28.8 (25.0-34.0) pg MCHC 33.4 (32.0-36.0) g/dL RDW Std Deviation 40.7 (36.4-46.3) fL RDW Coeff of Jomar 13.0 (11.5-14.5) % Plt Count 119 L (130-400) K/uL MPV 9.3 L (9.4-12.4) fL Neutrophils % (Manual) 56 % Lymphocytes % (Manual) 19 % Reactive Lymphs % (Man) 19 % Monocytes % (Manual) 3 % Eosinophils % (Manual) 2 % Basophils % (Manual) 1 % Neutrophils # (Manual) 6.68 H (1.40-6.50) K/uL Total Absolute Neuts 6.68 H (1.4-6.5) K/uL Lymphocytes # (Manual) 2.26 (1.2-3.4) K/uL Reactive Lymphs # 2.26 K/uL Total Abs Lymphocytes 4.53 H (1.2-3.4) K/uL Monocytes # (Manual) 0.36 (0.11-0.59) K/uL Eosinophils # (Manual) 0.24 (0-0.50) K/uL Basophils # (Manual) 0.12 (0-0.2) K/uL RBC Morphology Unremarkable PT 10.7 (9.0-12.0) Seconds INR 1.0 (0.9-1.1) APTT 25 (21-31) Seconds PTT Ratio 0.9 Sodium 134 L (136-145) mmol/L Potassium 4.1 (3.5-5.1) mmol/L Chloride 97 L (98-107) mmol/L Carbon Dioxide 30 (21-32) mmol/L Anion Gap 7 (3-11) BUN 7 (6-23) mg/dl Creatinine 0.49 L (0.6-1.2) mg/dl Est Cr Clr Drug Dosing Not Reportable Est GFR ( Amer) 121.9 ml/min Est GFR (Non-Af Amer) 105.2 ml/min BUN/Creatinine Ratio 14.3 (10-20) Glucose 120 H (70-99(Fasting)) mg/dl Calcium 9.3 (8.6-10.3) mg/dl Total Bilirubin 0.6 (0.2-1.0) mg/dl AST 16 (13-39) U/L ALT 17 (7-52) U/L Alkaline Phosphatase 108 H (34-104) U/L Troponin I High Sens 3.7 (0-14) pg/ml Total Protein 6.9 (6.0-8.3) gm/dl Albumin 4.0 (3.4-5.0) gm/dl Globulin 2.9 (2.5-4.0) gm/dl Albumin/Globulin Ratio 1.4 (0.9-2) Administered Medications Discontinued Medications Fentanyl Citrate (Fentanyl Citrate Pf 100 Mcg/2 Ml Vial) 50 mcg IV NOW STA Stop: 10/27/23 00:32 Last Admin: 10/27/23 00:47 Dose: 50 mcg Documented By: MARGARITO Ioversol (Optiray 320 125ml) 125 ml IV ONCE ONE Stop: 10/27/23 00:41 Last Admin: 10/27/23 00:41 Dose: 117 ml Documented By: MARY BETH Ondansetron HCl (Ondansetron Inj 2 Mg/Ml 2 Ml Vial) 4 mg IV NOW STA Stop: 10/27/23 00:32 Last Admin: 10/27/23 00:47 Dose: 4 mg Documented By: MARGARITO Imaging Data Radiologist's Impression: Abdomen/Pelvis CT 10/26/23 23:54 Exam(s): CT ABDOMEN + PELVIS With Contrast IV Amt: 117 ml optiray 320 EXAM: CT Abdomen and Pelvis With Intravenous Contrast CLINICAL HISTORY: Reason for exam: LUQ pain. TECHNIQUE: Axial computed tomography images of the abdomen and pelvis with intravenous contrast. CTDI is 35.99 mGy and DLP is 1704.16 mGy-cm. Automated exposure control was utilized for the study. A dose lowering technique was utilized adhering to the principles of ALARA. CONTRAST: Patient received 117 ml optiray 320 of IV contrast COMPARISON: None. FINDINGS: Lung bases: Right lower lobe atelectasis. Remainder of the lung bases are clear. ABDOMEN: Liver: Unremarkable. No mass. Gallbladder and bile ducts: Unremarkable. No calcified stones. No ductal dilation. Pancreas: Unremarkable. No mass. No ductal dilation. Spleen: The spleen measures 16.2 cm consistent with splenomegaly. Adrenals: Unremarkable. No mass. Kidneys and ureters: Unremarkable. No solid mass. No hydronephrosis. Stomach and bowel: Unremarkable. No obstruction. No mucosal thickening. PELVIS: Appendix: Nonvisualized appendix. Bladder: Unremarkable. No mass. Reproductive: Nonvisualized uterus suggestive of prior hysterectomy. ABDOMEN and PELVIS: Intraperitoneal space: Unremarkable. No free air. No significant fluid collection. Bones/joints: Multilevel degenerative disease of the spine with vacuum phenomenon at L1-L2 and L4-L5. No acute fracture. No dislocation. Soft tissues: Small bilateral fat-containing inguinal hernias. Vasculature: There is infrarenal abdominal aortic aneurysm measuring 4. 0 x 4.1 cm x 5.8 cm in length. Secondary of aneurysmal dilatation distally measuring approximately 3.7 x 3.4 cm in axial dimension by 2.7 cm in length. Calcified atherosclerotic disease throughout the aorta. Lymph nodes: Unremarkable. No enlarged lymph nodes. IMPRESSION: 1. 2 adjacent abdominal aortic aneurysms, largest seen in the infrarenal region measuring 4.0 x 4.1 cm in axial dimension by 5.8 cm in length and second seen distally above the bifurcation measuring 3.7 x 3.4 cm x 2.7 cm in length. 2. Splenomegaly. Otherwise unremarkable abdominal viscera. 3. No bowel obstruction or focal inflammatory process or other gastrointestinal tract. Electronically signed by: Wendy Carr MD 10/27/23 01:46 AM Discharge Plan Visit Data Chief Complaint: Shortness of Breath/Dyspnea Stated Complaint: SOB, LT FLANK/SHOULDER PAIN ED Provider: Dianna Tuttle Discharge Problem: Bilateral pneumonia, Hypoxia, Abdominal aortic aneurysm, Abdominal pain, left upper quadrant Forms Stand Alone Forms: [facility] Prescriptions Prescriptions: No Action albuterol sulfate 2.5 mg /3 mL (0.083 %) solution for nebulization 2.5 mg INH QID PRN (Reason: shortness of breath or wheezing) Qty: 180 3RF Incruse Ellipta 62.5 mcg/actuation blister with device 1 inh inhalation Q24H Qty: 30 5RF albuterol sulfate [ProAir HFA] 90 mcg/actuation HFA aerosol inhaler 1 - 2 puff INHALATION Q6H PRN (Reason: Shortness Of Breath) Qty: 6.7 5RF levothyroxine 200 mcg tablet 200 mcg PO DAILY Qty: 90 3RF atorvastatin 20 mg tablet 20 mg PO QPM Qty: 90 3RF prednisone 10 mg tablet See Rx Instructions PO DAILY Qty: 30 0RF Rx Instructions: 4 tabs for 3 days, then 3 tabs for 3 days, then 2 tabs for 3 days, then 1 tab for 3 days. PO DAILY; ibuprofen 200 mg Tablet 200 mg PO Q6H PRN (Reason: Pain) guaifenesin [Mucinex] 600 mg Tablet Extended Release 12hr 600 mg PO Q12H PRN (Reason: Congestion) Saline Mist 0.65 % Aerosol,[place] 2 sprays JODI Q1H PRN (Reason: nasal congestion) Qty: 30 0RF Rx Instructions: Please give her bottle from the hospital Referrals Referrals: Susy Soto MD [Primary Care Provider] -
[2023-10-27] MEDS: fentaNYL citrate PF 100 MCG/2 ML VIAL IV STA (00:47)
[2023-10-27] MEDS: ONDANSETRON INJ 2 MG/ML 2 ML VIAL IV STA (00:47)
--- NOTE | 2023-10-27 01:47 | CT Scan Report ---
Exam(s): CT ABDOMEN + PELVIS With Contrast IV Amt: 117 ml optiray 320 EXAM: CT Abdomen and Pelvis With Intravenous Contrast CLINICAL HISTORY: Reason for exam: LUQ pain. TECHNIQUE: Axial computed tomography images of the abdomen and pelvis with intravenous contrast. CTDI is 35.99 mGy and DLP is 1704.16 mGy-cm. Automated exposure control was utilized for the study. A dose lowering technique was utilized adhering to the principles of ALARA. CONTRAST: Patient received 117 ml optiray 320 of IV contrast COMPARISON: None. FINDINGS: Lung bases: Right lower lobe atelectasis. Remainder of the lung bases are clear. ABDOMEN: Liver: Unremarkable. No mass. Gallbladder and bile ducts: Unremarkable. No calcified stones. No ductal dilation. Pancreas: Unremarkable. No mass. No ductal dilation. Spleen: The spleen measures 16.2 cm consistent with splenomegaly. Adrenals: Unremarkable. No mass. Kidneys and ureters: Unremarkable. No solid mass. No hydronephrosis. Stomach and bowel: Unremarkable. No obstruction. No mucosal thickening. PELVIS: Appendix: Nonvisualized appendix. Bladder: Unremarkable. No mass. Reproductive: Nonvisualized uterus suggestive of prior hysterectomy. ABDOMEN and PELVIS: Intraperitoneal space: Unremarkable. No free air. No significant fluid collection. Bones/joints: Multilevel degenerative disease of the spine with vacuum phenomenon at L1-L2 and L4-L5. No acute fracture. No dislocation. Soft tissues: Small bilateral fat-containing inguinal hernias. Vasculature: There is infrarenal abdominal aortic aneurysm measuring 4. 0 x 4.1 cm x 5.8 cm in length. Secondary of aneurysmal dilatation distally measuring approximately 3.7 x 3.4 cm in axial dimension by 2.7 cm in length. Calcified atherosclerotic disease throughout the aorta. Lymph nodes: Unremarkable. No enlarged lymph nodes. IMPRESSION: 1. 2 adjacent abdominal aortic aneurysms, largest seen in the infrarenal region measuring 4.0 x 4.1 cm in axial dimension by 5.8 cm in length and second seen distally above the bifurcation measuring 3.7 x 3.4 cm x 2.7 cm in length. 2. Splenomegaly. Otherwise unremarkable abdominal viscera. 3. No bowel obstruction or focal inflammatory process or other gastrointestinal tract. Electronically signed by: Wendy Carr MD 10/27/23 01:46 AM
--- NOTE | 2023-10-27 02:34 | History & Physical Report ---
Date of Service October 27, 2023 Assessment & Plan (1) COPD exacerbation: (2) Abdominal pain, left upper quadrant: (3) Abdominal aortic aneurysm: (4) Dyslipidemia: (5) Type 2 diabetes mellitus: (6) Hypothyroidism: (7) Tobacco use disorder: (8) Anxiety: Plan Danielle is a 62F T2DM, HLD, hypothyroidism, COPD, tobacco use, and anxiety who presented for worsening dyspnea. COPD Exacerbation +/- Viral PNA - Acutely increased dyspnea and cough with new O2 requirement (2L NC) - Recent URI sx (rhinorrhea/postnasal drip) 1 week ago - Slight leukocytosis w/ elevated neutrophils, negative procalcitonin - CXR w/o evidence of consolidation - Low suspicion for bacterial PNA, s/p 1 dose Levofloxacin in ED Will continue with Azithromycin for anti-inflammatory effect in COPD Exacerbation - Continue steroids, s/p Methylpred 125 mg in ED, follow with Prednisone 40 mg PO daily - Provided Magnesium x 1 g, Mg level ordered for AM lab - Continue home inhalers Scheduled albuterol and DuoNeb Continue Mucinex Encourage pulmonary toilet - Provided smoking cessation education Splenomegaly | Thrombocytopenia (119L) - Splenomegaly evidenced on CTAP - Likely cause of patient's LUQ pain/referred shoulder pain - Potential a/w patient's recent viral URI sx Ordered EBV and Respiratory biofire Obtained peripheral smear Hyponatremia (134 L) - Mild, follow clinically & w/ BMP New Abdominal Aortic Aneurysms x 2 - Patient with longstanding smoking hx, still ongoing - Now with AAAs of 4.0 x 4.1 (5.8 cm long) and 3.7 x 3.4 (2.7 cm long) - Patient without abdominal pain - Pulsatile abdominal mass unappreciable on exam, possibly d/t habitus - Vascular surgery consulted, appreciate recommendations Chronic Conditions: T2DM: SSI and BSG checks ACHS inpatient HLD: Continue home statin Hypothyroidism: Continue home Levothyroxine COPD: As above Tobacco use: As above Anxiety: No current medical management FEN:DM2 Code status: Full Code DVT ppx: Deferred d/t Thrombocytopenia Isolation: None Dispo:Med/Surg w/ Telemetry History of Present Illness Chief Complaint: Dyspnea Primary Care Provider: Susy Soto MD Danielle is a 62F T2DM, HLD, hypothyroidism, COPD, tobacco use, and anxiety who presented for worsening dyspnea. ED Course: Fentanyl, Zofran, Methylprednisone, Levofloxacin Patient presented due to worsening dyspnea, coughing, and left sided rib/LUQ pain with radiation to shoulder. Patient notes that her respiratory symptoms are similar to prior COPD exacerbations, but the LUQ pain she has never experienced before. No generalized abdominal discomfort. No back pain. No nausea or emesis. Patient notes that she had rhinorrhea and postnasal drip 1 week ago, but had no associated throat pain, fevers, chills, or headaches. She has not experienced any change in her bowel/bladder habits. She was sitting in her office chair this afternoon when she noticed an acute worsening of her symptoms and ultimately decided to present to the ER. She has had no recent changes in her medications. She does not use oxygen at baseline, but does have a concentrator at home for occasional use. She notes that she had quit smoking for the last 6 months, but ultimately restarted 2 weeks ago. Unwilling to trial medical support for smoking sensation. Allergies Allergy/AdvReac Type Severity Reaction Status Date / Time No Known Allergies Allergy Verified 10/27/23 01:51 Home Medications Medication Instructions Recorded Confirmed Type guaifenesin 600 mg tablet, 600 mg PO Q12H PRN Congestion 12/06/18 10/27/23 History extended release 12 hr (Mucinex) ibuprofen 200 mg tablet 200 mg PO Q6H PRN Pain 12/06/18 10/27/23 History sodium chloride 0.65 % nasal spray 2 sprays JODI Q1H PRN nasal 12/08/18 10/27/23 Rx aerosol (Saline Mist) congestion #30 mL albuterol sulfate 90 mcg/actuation 1 - 2 puff inhalation Q6H PRN 10/04/21 10/27/23 Rx aerosol inhaler (ProAir HFA) Shortness Of Breath #6.7 grams albuterol sulfate 2.5 mg/3 mL 2.5 mg (3 mL) inhalation QID PRN 10/10/22 10/27/23 Rx (0.083 %) solution for nebulization shortness of breath or wheezing #180 mL atorvastatin 20 mg tablet 20 mg PO QPM #90 tabs 07/17/23 10/27/23 Rx levothyroxine 200 mcg tablet 200 mcg PO DAILY #90 tabs 07/17/23 10/27/23 Rx prednisone 10 mg tablet See Rx Instructions PO DAILY #30 07/17/23 10/27/23 Rx tabs umeclidinium 62.5 mcg/actuation 1 inh inhalation Q24H #30 ea 07/30/23 10/27/23 Rx blister powder for inhalation (Incruse Ellipta) Past Med/Surg History Problem List (Updated 10/27/23 @ 05:02 by Cesar Lin, DO) COPD exacerbation Abdominal pain, left upper quadrant (Acute) Abdominal aortic aneurysm (Acute) Hypoxia (Acute) Bilateral pneumonia (Acute) Dyslipidemia Type 2 diabetes mellitus History of colon polyps Hypothyroidism (Chronic) COPD (chronic obstructive pulmonary disease) (Chronic) Hyperglycemia Tobacco use disorder (Chronic) Anxiety (Chronic) High triglycerides (Chronic) Medical History Anemia Anxiety Chronic obstructive pulmonary disease High triglycerides Hyperglycemia Hypothyroidism Insomnia Tobacco use disorder Surgical History History of appendectomy History of bilateral tubal ligation History of colonoscopy History of dacryocystorhinostomy History of dilatation and curettage History of esophagogastroduodenoscopy (EGD) History of hysterectomy History of tonsillectomy History of tooth extraction History of total abdominal hysterectomy and bilateral salpingo-oophorectomy History of wisdom tooth extraction Family History Grandfather (Paternal) Family history of diabetes mellitus Brother Family hx colonic polyps Sister Family hx colonic polyps Father Myocardial infarction Lung cancer Hypertension Brother Myocardial infarction Stroke Hypertension Aunt Breast cancer Mother Environmental allergies Malignant neoplasm of urinary bladder Thyroid disease Uncle Malignant neoplasm of urinary bladder Aunt Thyroid disease Other Migraines No family history of adverse response to anesthesia Denies family history of Ovarian cancer Prostate cancer Colorectal cancer Social History (Updated 01/09/23 @ 13:03 by SMITH Groves) Smoking Status: Current every day smoker Tobacco Type: Cigarettes Age Started Using Tobacco: 15; Cigarettes Per Day: 5 CIGS A DAY; Second Hand Exposure: No; Do You Dip or Chew Tobacco: No; Hx Alcohol Use: Yes Alcohol type: beer Alcohol Intake Frequency Comment: last beer was Thursday, has "a few beers" 1-2 nights a week Hx Substance Use: No Preferred Language: Polish Communication Ability: Effective Visual Impairment: No Limitations Hearing Ability: Normal 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 Beliefs That Will Affect Care: None marital status: Current Living Situation: Spouse current occupational status: employed current occupation: [employer] Feels Safe at Home: Yes Childhood Exposure to Second-Hand Smoke: Yes Diet: regular Dental Care, Regularly: Yes Physical Activity Frequency: 1-2 Times per Week Seatbelt Use: sometimes Sunscreen Use: Yes Assistive Devices: Denture - Upper and Glasses Physical Exam Physical Exam: Gen: NAD, alert, interactive HEENT: Supple, no LAD, no thyromegaly, no JVD Resp:Labored (mild), inspiratory and expiratory wheezing throughout, diminished in LLL CV: tachycardic, regular, normal S1/S2, no M/R/G Abd: Soft, distended by adiposity, LUQ TTP, no hepatomegaly, tender palpable spleen, normoactive bowels, unable to appreciate pulsatile abdominal mass Extr: 2+ dp bilaterally, trace LE edema Skin: No rashes lesions or erythema Results & Data Results & Data Vital Signs (Past 12 Hours) Vital Signs Temp Pulse Pulse Resp BP BP Pulse Ox 10/27/23 01:49 82 10/26/23 22:12 80 20 172/143 H 97 10/26/23 22:01 82 93 10/26/23 22:01 86 L 10/26/23 22:00 85 10/26/23 20:32 36.6 C 100 H 22 147/75 H 90 O2 Del Method O2 Flow Rate 10/27/23 01:49 10/26/23 22:12 Nasal Cannula 2 10/26/23 22:01 Nasal Cannula 2 10/26/23 22:01 Room Air 0 10/26/23 22:00 10/26/23 20:32 Room Air Laboratory Results Laboratory Results WBC 11.92 K/ul (4.8-10.8) H 10/26/23 20:45 RBC 4.51 M/uL (4.20-5.40) 10/26/23 20:45 Hgb 13.0 g/dl (12.0-16.0) 10/26/23 20:45 Hct 38.9 % (37.0-47.0) 10/26/23 20:45 MCV 86.3 fL (80.0-100.0) 10/26/23 20:45 MCH 28.8 pg (25.0-34.0) 10/26/23 20:45 MCHC 33.4 g/dL (32.0-36.0) 10/26/23 20:45 RDW Std Deviation 40.7 fL (36.4-46.3) 10/26/23 20:45 RDW Coeff of Jomar 13.0 % (11.5-14.5) 10/26/23 20:45 Plt Count 119 K/uL (130-400) L 10/26/23 20:45 MPV 9.3 fL (9.4-12.4) L 10/26/23 20:45 Neutrophils % (Manual) 56 % 10/26/23 20:45 Lymphocytes % (Manual) 19 % 10/26/23 20:45 Reactive Lymphs % (Man) 19 % 10/26/23 20:45 Monocytes % (Manual) 3 % 10/26/23 20:45 Eosinophils % (Manual) 2 % 10/26/23 20:45 Basophils % (Manual) 1 % 10/26/23 20:45 Neutrophils # (Manual) 6.68 K/uL (1.40-6.50) H 10/26/23 20:45 Total Absolute Neuts 6.68 K/uL (1.4-6.5) H 10/26/23 20:45 Lymphocytes # (Manual) 2.26 K/uL (1.2-3.4) 10/26/23 20:45 Reactive Lymphs # 2.26 K/uL 10/26/23 20:45 Total Abs Lymphocytes 4.53 K/uL (1.2-3.4) H 10/26/23 20:45 Monocytes # (Manual) 0.36 K/uL (0.11-0.59) 10/26/23 20:45 Eosinophils # (Manual) 0.24 K/uL (0-0.50) 10/26/23 20:45 Basophils # (Manual) 0.12 K/uL (0-0.2) 10/26/23 20:45 RBC Morphology Unremarkable 10/26/23 20:45 PT 10.7 Seconds (9.0-12.0) 10/26/23 20:45 INR 1.0 (0.9-1.1) 10/26/23 20:45 APTT 25 Seconds (21-31) 10/26/23 20:45 PTT Ratio 0.9 10/26/23 20:45 Sodium 134 mmol/L (136-145) L 10/26/23 20:45 Potassium 4.1 mmol/L (3.5-5.1) 10/26/23 20:45 Chloride 97 mmol/L (98-107) L 10/26/23 20:45 Carbon Dioxide 30 mmol/L (21-32) 10/26/23 20:45 Anion Gap 7 (3-11) 10/26/23 20:45 BUN 7 mg/dl (6-23) 10/26/23 20:45 Creatinine 0.49 mg/dl (0.6-1.2) L 10/26/23 20:45 Est Cr Clr Drug Dosing Not Reportable 10/26/23 20:45 Est GFR ( Amer) 121.9 ml/min 10/26/23 20:45 Est GFR (Non-Af Amer) 105.2 ml/min 10/26/23 20:45 BUN/Creatinine Ratio 14.3 (10-20) 10/26/23 20:45 Glucose 120 mg/dl (70-99(Fasting)) H 10/26/23 20:45 Lactate 0.7 mmol/L (0.4-2.0) 10/27/23 02:46 Calcium 9.3 mg/dl (8.6-10.3) 10/26/23 20:45 Total Bilirubin 0.6 mg/dl (0.2-1.0) 10/26/23 20:45 AST 16 U/L (13-39) 10/26/23 20:45 ALT 17 U/L (7-52) 10/26/23 20:45 Alkaline Phosphatase 108 U/L (34-104) H 10/26/23 20:45 Troponin I High Sens 3.7 pg/ml (0-14) 10/26/23 20:45 Total Protein 6.9 gm/dl (6.0-8.3) 10/26/23 20:45 Albumin 4.0 gm/dl (3.4-5.0) 10/26/23 20:45 Globulin 2.9 gm/dl (2.5-4.0) 10/26/23 20:45 Albumin/Globulin Ratio 1.4 (0.9-2) 10/26/23 20:45 Procalcitonin 0.03 ng/ml (0-0.5) 10/27/23 02:46 Impressions Abdomen/Pelvis CT 10/26/23 23:54 Exam(s): CT ABDOMEN + PELVIS With Contrast IV Amt: 117 ml optiray 320 EXAM: CT Abdomen and Pelvis With Intravenous Contrast CLINICAL HISTORY: Reason for exam: LUQ pain. TECHNIQUE: Axial computed tomography images of the abdomen and pelvis with intravenous contrast. CTDI is 35.99 mGy and DLP is 1704.16 mGy-cm. Automated exposure control was utilized for the study. A dose lowering technique was utilized adhering to the principles of ALARA. CONTRAST: Patient received 117 ml optiray 320 of IV contrast COMPARISON: None. FINDINGS: Lung bases: Right lower lobe atelectasis. Remainder of the lung bases are clear. ABDOMEN: Liver: Unremarkable. No mass. Gallbladder and bile ducts: Unremarkable. No calcified stones. No ductal dilation. Pancreas: Unremarkable. No mass. No ductal dilation. Spleen: The spleen measures 16.2 cm consistent with splenomegaly. Adrenals: Unremarkable. No mass. Kidneys and ureters: Unremarkable. No solid mass. No hydronephrosis. Stomach and bowel: Unremarkable. No obstruction. No mucosal thickening. PELVIS: Appendix: Nonvisualized appendix. Bladder: Unremarkable. No mass. Reproductive: Nonvisualized uterus suggestive of prior hysterectomy. ABDOMEN and PELVIS: Intraperitoneal space: Unremarkable. No free air. No significant fluid collection. Bones/joints: Multilevel degenerative disease of the spine with vacuum phenomenon at L1-L2 and L4-L5. No acute fracture. No dislocation. Soft tissues: Small bilateral fat-containing inguinal hernias. Vasculature: There is infrarenal abdominal aortic aneurysm measuring 4. 0 x 4.1 cm x 5.8 cm in length. Secondary of aneurysmal dilatation distally measuring approximately 3.7 x 3.4 cm in axial dimension by 2.7 cm in length. Calcified atherosclerotic disease throughout the aorta. Lymph nodes: Unremarkable. No enlarged lymph nodes. IMPRESSION: 1. 2 adjacent abdominal aortic aneurysms, largest seen in the infrarenal region measuring 4.0 x 4.1 cm in axial dimension by 5.8 cm in length and second seen distally above the bifurcation measuring 3.7 x 3.4 cm x 2.7 cm in length. 2. Splenomegaly. Otherwise unremarkable abdominal viscera. 3. No bowel obstruction or focal inflammatory process or other gastrointestinal tract. Electronically signed by: Wendy Carr MD 10/27/23 01:46 AM Supervising Physician Co-Signing Physician Notes Patient seen and examined, chart reviewed, case discussed with Dr. Lin and I agree with the assessment and plan as above. Patient feels improved. Resting comfortably, no distress Will continue management for COPD exacerbation, viral PNA with supportive care Viral workup for splenomegaly Vascular surgery evaluation for new aneurysms Remainder as above Resident Activity Tracking Resident Involvement: Resident Care Provided Care Provided: Adult Hospital Medicine (Night) (6) Hypothyroidism Hypothyroidism type: unspecified Qualified Code(s): E03.9 - Hypothyroidism, unspecified
[2023-10-27] MEDS: levoFLOXacin/D5W 750 MG/150 ML BAG IV STA (02:52)
[2023-10-27] MEDS: methylPREDNISolone 125 MG/2 ML VIAL IV STA (02:52)
--- NOTE | 2023-10-27 05:36 | Billing Data ---
Date of Service October 27, 2023 Coding Level of Care Code 53371 INT INP/OBS CARE
[2023-10-27] MEDS ORDERED: SODIUM CHLORIDE 0.65% NA SOLN 45 ML (OCEAN) NAE PRN (06:07)
[2023-10-27] MEDS ORDERED: POLYETHYLENE (MIRALAX) 17 GM PACK PO PRN (06:07)
[2023-10-27] MEDS ORDERED: DEXTROSE 50% 50 ML SYRINGE IV PRN (06:07)
[2023-10-27] MEDS ORDERED: GLUCOSE 10 TAB/TUBE PO PRN (06:07)
[2023-10-27] MEDS ORDERED: GLUCOSE 40% GEL 15 GM TUBE PO PRN (06:07)
[2023-10-27] MEDS ORDERED: GLUCAGON FOR INJ 1 MG VIAL SQ PRN (06:07)
[2023-10-27] MEDS ORDERED: ALBUTEROL HFA 8 GM INHALER INH PRN (06:07)
[2023-10-27] MEDS ORDERED: ACETAMINOPHEN 325 MG TAB PO PRN (06:07)
[2023-10-27] MEDS ORDERED: guaiFENesin 600 MG TABCR PO PRN (06:07)
[2023-10-27] MEDS ORDERED: MELATONIN 3 MG TAB PO PRN (06:07)
[2023-10-27] MEDS ORDERED: CARBOHYDRATES FOR HYPOGLYCEMIA PO PRN (06:07)
[2023-10-27] MEDS ORDERED: ONDANSETRON INJ 2 MG/ML 2 ML VIAL IV PRN (06:07)
[2023-10-27] MEDS: IBUPROFEN 200 MG TAB PO PRN (06:42)
[2023-10-27] MEDS: LEVOTHYROXINE SODIUM 200 MCG TABLET PO SCH (06:47)
[2023-10-27] MEDS: AZITHROMYCIN 500 MG in DEXTROSE 5% 250 ML IV SCH (06:47)
[2023-10-27] MEDS: ALBUT/IPRATROP 3MG/0.5MG NEB 3 ML VIAL NEB SCH (07:30)
[2023-10-27] MEDS: ALBUTEROL 0.083% NEBU SOLN 3 ML VIAL INH SCH (07:43)
--- NOTE | 2023-10-27 07:47 | XRay Report ---
XR chest 1V not portable HISTORY: Chest pain, nonspecific COMPARISON: Chest 12/06/2018. FINDINGS: No pneumothorax. No pleural effusions. The cardiac silhouette is normal in size. There are calcifications within the aortic knob. No acute fractures identified. No evidence for pulmonary edema . Right basilar linear densities favor subsegmental atelectasis or scarring. IMPRESSION: Right basilar linear densities which favor subsegmental atelectasis or scarring. Otherwise, no acute process within the chest. ACT 112: Negative or not required by law. Electronically signed by: Duncan Carlin M.D. 10/27/2023 7:45 AM
[2023-10-27 07:48] LABS: BUN Creatinine Ratio 15.6 (10-20); Calcium 9.1 mg/dl (8.6-10.3); Creatinine Clr Calc Pharmacy 180.7 ml/min; Est GFR (African American) 125.3 ml/min; Est GFR (Non-African American) 108.1 ml/min; Magnesium 2.1 mg/dl (1.7-2.4); Potassium 4.3 mmol/L (3.5-5.1)
[2023-10-27 07:50] LABS: Adenovirus PCR Not Detected (NotDetected); Bordetella parapertussis PCR Not Detected (NotDetected); Bordetella pertussis PCR Not Detected (NotDetected); Chlamydia pneumoniae PCR Not Detected (NotDetected); Coronavirus 229E PCR Not Detected (NotDetected); Coronavirus CoV-2 (COVID19)PCR Not Detected (NotDetected); Coronavirus HKU1 PCR Not Detected (NotDetected); Coronavirus NL63 PCR Not Detected (NotDetected); Coronavirus OC43PCR Not Detected (NotDetected); Human Metapneumovirus PCR Not Detected (NotDetected); Influenza A PCR Not Detected (NotDetected); Influenza B PCR Not Detected (NotDetected); Mycoplasma pneumoniae PCR Not Detected (NotDetected); Parainfluenza Virus 1 PCR Not Detected (NotDetected); Parainfluenza Virus 2 PCR Not Detected (NotDetected); Parainfluenza Virus 3 PCR Not Detected (NotDetected); Parainfluenza Virus 4 PCR Not Detected (NotDetected); Respiratory Syncytial VirusPCR Not Detected (NotDetected); Rhinovirus/Enterovirus PCR Not Detected (NotDetected)
[2023-10-27 08:50] LABS: Hematocrit (blood only) 39.2 % (37.0-47.0); Hemoglobin 12.9 g/dl (12.0-16.0); Mean Corpuscular Hemoglobin 28.9 pg (25.0-34.0); Mean Corpuscular Hgb Conc 32.9 g/dL (32.0-36.0); Mean Corpuscular Volume 87.9 fL (80.0-100.0); Mean Platelet Volume 8.9 fL (9.4-12.4); Platelet Count 120 K/uL (130-400); RDW Coefficient of Variation 13.1 % (11.5-14.5); RDW Standard Deviation 41.9 fL (36.4-46.3); Red Blood Count 4.46 M/uL (4.20-5.40); White Blood Count 10.96 K/ul (4.8-10.8)
[2023-10-27] MEDS: INSULIN ASPART PER UNIT CHARGE SC SCH (08:53)
[2023-10-27] MEDS: UMECLIDINIUM BROMIDE 62.5MCG/BLISTER 7 PUFFS/INHALER INH SCH (09:02)
[2023-10-27] MEDS: MAGNESIUM SULFATE / D5W 1 GM/100 ML BAG IV ONE (09:41)
--- NOTE | 2023-10-27 13:04 | Consultation ---
Date of Consultation October 27, 2023 Assessment & Plan (1) Abdominal aortic aneurysm: At this point she has a 4.1 cm abdominal aortic aneurysm which is unruptured. There was no stranding seen on the CAT scan. Being that this is asymptomatic we will therefore follow this along conservatively. Will see her in 6 months with an aortic ultrasound to evaluate size of the abdominal aortic aneurysm. Thank you very much for letting us participate in the care of this patient. Please call if you have any other questions. History of Present Illness Reason for Consultation: Abdominal aortic aneurysm Attending Physician: Terrence Gomez DO History of Present Illness This is a 62-year-old female who was admitted with exacerbation of her COPD. During her workup she was found to have an incidental 4.1 cm infrarenal abdominal aortic aneurysm. She did have left lower chest left upper quadrant pain on admission which is now resolved. She denies any back pain or severe generalized abdominal pain. She does have an uncle who had a aneurysm. She denies hypertension. She denies any claudication. Her only other medical problem is thyroid disease. She does have smoking history. She denies any symptoms of cerebrovascular insufficiency. Allergies Allergy/AdvReac Type Severity Reaction Status Date / Time No Known Allergies Allergy Verified 10/27/23 01:51 Home Medications Medication Instructions Recorded Confirmed Type guaifenesin 600 mg tablet, 600 mg PO Q12H PRN Congestion 12/06/18 10/27/23 History extended release 12 hr (Mucinex) ibuprofen 200 mg tablet 200 mg PO Q6H PRN Pain 12/06/18 10/27/23 History sodium chloride 0.65 % nasal spray 2 sprays JODI Q1H PRN nasal 12/08/18 10/27/23 Rx aerosol (Saline Mist) congestion #30 mL albuterol sulfate 90 mcg/actuation 1 - 2 puff inhalation Q6H PRN 10/04/21 10/27/23 Rx aerosol inhaler (ProAir HFA) Shortness Of Breath #6.7 grams albuterol sulfate 2.5 mg/3 mL 2.5 mg (3 mL) inhalation QID PRN 10/10/22 10/27/23 Rx (0.083 %) solution for nebulization shortness of breath or wheezing #180 mL atorvastatin 20 mg tablet 20 mg PO QPM #90 tabs 07/17/23 10/27/23 Rx levothyroxine 200 mcg tablet 200 mcg PO DAILY #90 tabs 07/17/23 10/27/23 Rx prednisone 10 mg tablet See Rx Instructions PO DAILY #30 07/17/23 10/27/23 Rx tabs umeclidinium 62.5 mcg/actuation 1 inh inhalation Q24H #30 ea 07/30/23 10/27/23 Rx blister powder for inhalation (Incruse Ellipta) Patient History Medical History Hypothyroidism Anemia Insomnia Chronic obstructive pulmonary disease inhalers prn-LAST RESCUE INHALER USE TODAY Surgical History History of colonoscopy History of hysterectomy History of dilatation and curettage History of bilateral tubal ligation History of total abdominal hysterectomy and bilateral salpingo-oophorectomy History of appendectomy History of esophagogastroduodenoscopy (EGD) History of tooth extraction all top teeth, some of bottom History of wisdom tooth extraction History of tonsillectomy History of dacryocystorhinostomy right eye Family History Grandfather (Paternal) Family history of diabetes mellitus Brother Family hx colonic polyps Sister Family hx colonic polyps Father Myocardial infarction Lung cancer Hypertension Brother Myocardial infarction Stroke Hypertension Aunt Breast cancer Mother Environmental allergies Malignant neoplasm of urinary bladder Thyroid disease Uncle Malignant neoplasm of urinary bladder Aunt Thyroid disease Other Migraines No family history of adverse response to anesthesia Denies family history of Ovarian cancer Prostate cancer Colorectal cancer Social History Smoking Status: Current some day smoker Tobacco Type: Cigarettes Age Started Using Tobacco: 15; Cigarettes Per Day: 5 CIGS A DAY; Second Hand Exposure: No; Do You Dip or Chew Tobacco: No; Hx Alcohol Use: No Hx Substance Use: No Preferred Language: Croatian Communication Ability: Effective Visual Impairment: No Limitations Hearing Ability: Normal Boarder Steam Required: No Beliefs That Will Affect Care: None marital status: Current Living Situation: Spouse current occupational status: employed 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 Safe at Home: Yes Childhood Exposure to Second-Hand Smoke: Yes Diet: regular Dental Care, Regularly: Yes Physical Activity Frequency: 1-2 Times per Week Seatbelt Use: sometimes Sunscreen Use: Yes Assistive Devices: Denture - Upper and Glasses Review of Systems Review of Systems: All systems reviewed & are unremarkable except as noted in HPI & below Physical Exam Constitutional: WD/WN, vitals as above + obese; not in distress Respiratory: normal respiratory effort; no respiratory distress Auscultation: + diminished lung sounds Cardiovascular: Rate/Rhythm: regular rate and regular rhythm Vessels: femoral pulses present, posterior tibial pulses present, dorsalis pedis pulses present and radial pulses present; no carotid bruit Extremities: normal capillary refill Gastrointestinal (Abdomen): Inspection/Auscultation: abdomen normal to inspection; abdomen not distended I cannot appreciate a pulsatile mass due to body habitus Neurologic: CN's II-XI intact bilaterally and moves all extremities Results & Data Vital Signs (Past 12 Hours) Vital Signs Temp Pulse Pulse Pulse Resp BP BP 10/27/23 10:29 36.6 C 75 18 10/27/23 09:16 10/27/23 07:34 79 10/27/23 07:34 76 16 10/27/23 06:47 10/27/23 06:20 36.7 C 86 18 115/66 10/27/23 06:07 10/27/23 04:00 73 18 108/72 10/27/23 02:00 83 22 132/68 10/27/23 01:49 82 10/27/23 01:30 77 24 122/74 10/27/23 01:00 81 22 129/77 BP Pulse Ox O2 Del Method O2 Flow Rate 10/27/23 10:29 115/72 89 L Nasal Cannula 2 10/27/23 09:16 Nasal Cannula 2 10/27/23 07:34 10/27/23 07:34 90 Nasal Cannula 3 10/27/23 06:47 Nasal Cannula 2 10/27/23 06:20 90 Nasal Cannula 2 10/27/23 06:07 Nasal Cannula 2 10/27/23 04:00 96 10/27/23 02:00 93 10/27/23 01:49 10/27/23 01:30 94 10/27/23 01:00 94
[2023-10-27] MEDS: predniSONE 20 MG TAB PO SCH (13:28)
--- NOTE | 2023-10-27 16:04 | Electrocardiogram Report ---
Test Reason : Blood Pressure : / mmHG Vent. Rate : 098 BPM Atrial Rate : 098 BPM P-R Int : 098 ms QRS Dur : 078 ms QT Int : 374 ms P-R-T Axes : 040 065 065 degrees QTc Int : 477 ms Sinus rhythm with short UT Nonspecific ST abnormality Abnormal ECG When compared with ECG of 06-DEC-2018 14:18, No significant change was found Confirmed by Subhash Rudd ([id number]) on 10/27/2023 4:04:25 PM Referred By: REFERRED SELF Confirmed By:Subhash Rudd
--- NOTE | 2023-10-27 18:02 | Hospitalist Progress Note ---
"Date of Service October 27, 2023 Assessment & Plan (1) COPD exacerbation: (2) Abdominal pain, left upper quadrant: (3) Abdominal aortic aneurysm: (4) Dyslipidemia: (5) Type 2 diabetes mellitus: (6) Hypothyroidism: (7) Tobacco use disorder: (8) Anxiety: Plan Danielle is a 62F T2DM, HLD, hypothyroidism, COPD, tobacco use, and anxiety who presented for worsening dyspnea. COPD Exacerbation +/- Viral PNA - Acutely increased dyspnea and cough with new O2 requirement - Recent URI sx (rhinorrhea/postnasal drip) 1 week ago - Slight leukocytosis w/ elevated neutrophils, negative procalcitonin - CXR w/o evidence of consolidation - Low suspicion for bacterial PNA, s/p 1 dose Levofloxacin in ED Will continue with Azithromycin for anti-inflammatory effect in COPD Exacerbation - Continue steroids, s/p Methylpred 125 mg in ED, follow with Prednisone 40 mg PO daily - S/p Magnesium x 1 g - Continue home inhalers Scheduled DuoNebs Continue Mucinex Encourage pulmonary toilet - Provided smoking cessation education Splenomegaly | Thrombocytopenia (119L) - Splenomegaly evidenced on CTAP, likely cause of patient's LUQ pain/referred shoulder pain - Potential a/w patient's recent viral URI sx Respiratory biofire negative EBV titers pending Tick-borne labs negative, no evidence on peripheral smear Peripheral smear significant for atypical lymphocytes - sent for flow cytom etry Heme consulted due to splenomegaly and peripheral smear results New Abdominal Aortic Aneurysms x 2 - Patient with longstanding smoking hx, still ongoing - Now with AAAs of 4.0 x 4.1 (5.8 cm long) and 3.7 x 3.4 (2.7 cm long) - Vascular surgery consulted, no intervention recommend currently, patient to follow up in outpatient setting in 6 months Hyponatremia (134 L) - Mild, follow clinically & w/ BMP Chronic Conditions: T2DM: SSI and BSG checks ACHS inpatient HLD: Continue home statin Hypothyroidism: Continue home Levothyroxine COPD: As above Tobacco use: As above Anxiety: No current medical management FEN:DM2 Code status: Full Code DVT ppx: Deferred d/t Thrombocytopenia Isolation: None Dispo:Med/Surg w/ Telemetry Admission and Anticipated Discharge Date Admission Date: October 27, 2023 Supervising Physician Co-Signing Physician Notes I personally examined the patient and verified all blanca points of history and exam, discussed case, and agree with decision making with Dr Vasquez Breathing feeling better, belly pain feeling better. Vitals noted, in general she is awake and alert fatigued but no distress. HEENT normocephalic atraumatic mucous membranes moist. Left-sided abdomen is fairly diffusely tender but no guarding rebound or rigidity. Given her body habitus I cannot reliably say that I feel splenomegaly. Labs and diagnostics noted. Presumably viral illnessthis would unite her COPD exacerbation splenomegaly and thrombocytopeniaat the same time it is a little bit odd, and would appreciate hematology input in regards to her splenomegaly/thrombocytopenia and lymphocytosis just to ensure that I am not overlooking anything and attributing it to a viral illness if there is other pathophysiology at play. Continue steroids and supportive care. Seems to be improving. Otherwise as above. Subjective Patient evaluated at bedside this morning, notes that she is feeling significantly better today compared to yesterday. States that it was the sharp, LUQ abdominal pain that really brought her into the hospital but does endorse more shortness of breath than usual. Pain is still present now but is under control unless she moves. Patient denies chest pain, denies current shortness of breath. Denies recent illness/sore throat/fevers. Currently on 2L supplemental O2, patient not on home O2 at baseline but does have a concentrator at home. Review of Systems Review of Systems: as per HPI Physical Exam Physical Exam: General: Alert and oriented. No acute distress Cardiac: Regular rate and rhythm, no murmurs appreciated Respiratory: Diminished lung sounds throughout but no wheezes, rhonchi appreciated. No accessory muscle use, no conversational dyspnea. Abdominal: Soft, non-tender, non-distended. Bowel sounds present. Extremities: No lower extremity edema Results & Data Results & Data Vital Signs (Past 12 Hours) Vital Signs Temp Pulse Pulse Pulse Resp BP BP 10/27/23 15:55 36.9 C 82 18 124/73 10/27/23 15:40 92 H 10/27/23 13:15 84 18 10/27/23 10:29 36.6 C 75 18 115/72 10/27/23 09:16 10/27/23 07:34 79 10/27/23 07:34 76 16 10/27/23 06:47 10/27/23 06:20 36.7 C 86 18 115/66 10/27/23 06:07 Pulse Ox O2 Del Method O2 Flow Rate 10/27/23 15:55 88 L Nasal Cannula 2 10/27/23 15:40 10/27/23 13:15 88 L Nasal Cannula 3 10/27/23 10:29 89 L Nasal Cannula 2 10/27/23 09:16 Nasal Cannula 2 10/27/23 07:34 10/27/23 07:34 90 Nasal Cannula 3 10/27/23 06:47 Nasal Cannula 2 10/27/23 06:20 90 Nasal Cannula 2 10/27/23 06:07 Nasal Cannula 2 Resident Activity Tracking Resident Involvement: Resident Care Provided Care Provided: Adult Hospital Medicine (6) Hypothyroidism Hypothyroidism type: unspecified Qualified Code(s): E03.9 - Hypothyroidism, unspecified"
[2023-10-27] MEDS: ATORVASTATIN 20 MG TAB PO SCH (19:23)
--- NOTE | 2023-10-27 20:22 | Billing Data ---
Date of Service October 27, 2023 Coding Level of Care Code 52742 SUB INP/OBS CARE
--- NOTE | 2023-10-28 07:51 | Oncology Consultation ---
Date of Consultation October 28, 2023 Assessment & Plan (1) COPD exacerbation: (2) Abdominal pain, left upper quadrant: (3) COPD (chronic obstructive pulmonary disease): (4) Bilateral pneumonia: Plan She has mild lymphocytosis and splenomegaly which I suspect is likely due to low-grade lymphoma/leukemia such as CLL. She has no significant cytopenias or lymphadenopathy on abdominal imaging. Flow cytometry has been ordered and is pending. Will await results from flow cytometry. I will set her up for outpatient hematology follow-up on discharge from hospital. Thank you for this consult. Please feel free to call if have any further questions. History of Present Illness Reason for Consultation: Abnormal peripheral smear, splenomegaly Attending Physician: Terrence Gomez DO History of Present Illness 62-year-old female admitted to [facility] after presenting with left upper quadrant abdominal pain, left shoulder pain and worsening shortness of breath. Labs revealed mild leukocytosis with white cell count of 11.9. Peripheral smear review revealed atypical lymphocytes. CT abdomen and pelvis revealed splenomegaly with spleen size of 16.2 as well as 2 adjacent abdominal aortic aneurysm with largest measuring 4.0 x 4.1 x 5.8 and second measuring 3.7 x 3.4 x 2.7. Hematology was consulted for abnormal peripheral smear as well as splenomegaly. She denies fever, chills, palpable lymphadenopathy, significant weight loss or night sweats. States that she is feeling better with improvement in shortness of breath, abdominal pain and shoulder pain. Allergies Allergy/AdvReac Type Severity Reaction Status Date / Time No Known Allergies Allergy Verified 10/27/23 01:51 Home Medications Medication Instructions Recorded Confirmed Type guaifenesin 600 mg tablet, 600 mg PO Q12H PRN Congestion 12/06/18 10/27/23 History extended release 12 hr (Mucinex) ibuprofen 200 mg tablet 200 mg PO Q6H PRN Pain 12/06/18 10/27/23 History sodium chloride 0.65 % nasal spray 2 sprays JODI Q1H PRN nasal 12/08/18 10/27/23 Rx aerosol (Saline Mist) congestion #30 mL albuterol sulfate 90 mcg/actuation 1 - 2 puff inhalation Q6H PRN 10/04/21 Rx aerosol inhaler (ProAir HFA) Shortness Of Breath #6.7 grams albuterol sulfate 2.5 mg/3 mL 2.5 mg (3 mL) inhalation QID PRN 10/10/22 10/27/23 Rx (0.083 %) solution for nebulization shortness of breath or wheezing #180 mL atorvastatin 20 mg tablet 20 mg PO QPM #90 tabs 07/17/23 10/27/23 Rx levothyroxine 200 mcg tablet 200 mcg PO DAILY #90 tabs 07/17/23 10/27/23 Rx prednisone 10 mg tablet See Rx Instructions PO DAILY #30 07/17/23 10/27/23 Rx tabs umeclidinium 62.5 mcg/actuation 1 inh inhalation Q24H #30 ea 07/30/23 10/27/23 Rx blister powder for inhalation (Incruse Ellipta) aspirin 81 mg capsule 81 mg PO DAILY #30 caps 10/28/23 Rx atorvastatin 40 mg tablet 40 mg PO DAILY #30 tabs 10/28/23 Rx carvedilol 3.125 mg tablet 3.125 mg PO BID #60 tabs 10/28/23 Rx prednisone 20 mg tablet 40 mg (2 x 20 mg) PO DAILY 3 days 10/28/23 Rx #6 tabs Patient History Medical History Hypothyroidism Anemia Insomnia Chronic obstructive pulmonary disease inhalers prn-LAST RESCUE INHALER USE TODAY Surgical History History of colonoscopy History of hysterectomy History of dilatation and curettage History of bilateral tubal ligation History of total abdominal hysterectomy and bilateral salpingo-oophorectomy History of appendectomy History of esophagogastroduodenoscopy (EGD) History of tooth extraction all top teeth, some of bottom History of wisdom tooth extraction History of tonsillectomy History of dacryocystorhinostomy right eye Family History Grandfather (Paternal) Family history of diabetes mellitus Brother Family hx colonic polyps Sister Family hx colonic polyps Father Myocardial infarction Lung cancer Hypertension Brother Myocardial infarction Stroke Hypertension Aunt Breast cancer Mother Environmental allergies Malignant neoplasm of urinary bladder Thyroid disease Uncle Malignant neoplasm of urinary bladder Aunt Thyroid disease Other Migraines No family history of adverse response to anesthesia Denies family history of Ovarian cancer Prostate cancer Colorectal cancer Social History Smoking Status: Current some day smoker Tobacco Type: Cigarettes Age Started Using Tobacco: 15; Cigarettes Per Day: 5 CIGS A DAY; Second Hand Exposure: No; Do You Dip or Chew Tobacco: No; Hx Alcohol Use: No Hx Substance Use: No Preferred Language: Libyan Communication Ability: Effective Visual Impairment: No Limitations Hearing Ability: Normal Telepathist Required: No Beliefs That Will Affect Care: None marital status: Current Living Situation: Spouse current occupational status: employed current occupation: COMM[employer] Feels Safe at Home: Yes Childhood Exposure to Second-Hand Smoke: Yes Diet: regular Dental Care, Regularly: Yes Physical Activity Frequency: 1-2 Times per Week Seatbelt Use: sometimes Sunscreen Use: Yes Assistive Devices: Nebulizer and Oxygen - at Night Results & Data Vital Signs (Past 12 Hours) Vital Signs Temp Pulse Pulse Resp BP BP Pulse Ox 10/28/23 07:39 87 20 88 L 10/28/23 07:30 36.5 C 66 18 110/68 95 10/28/23 07:23 67 10/28/23 00:54 80 10/28/23 00:26 36.7 C 79 20 125/74 94 10/28/23 00:23 74 18 91 10/27/23 20:02 79 18 90 O2 Del Method O2 Flow Rate 10/28/23 07:39 Room Air 10/28/23 07:30 Nasal Cannula 6 10/28/23 07:23 10/28/23 00:54 10/28/23 00:26 Room Air 10/28/23 00:23 Nasal Cannula 4 10/27/23 20:02 Nasal Cannula 4 (3) COPD (chronic obstructive pulmonary disease) COPD type: chronic bronchitis Chronic bronchitis type: unspecified Qualified Code(s): J42 - Unspecified chronic bronchitis
[2023-10-28 07:58] LABS: Hematocrit (blood only) 38.4 % (37.0-47.0); Hemoglobin 12.2 g/dl (12.0-16.0); Mean Corpuscular Hemoglobin 28.3 pg (25.0-34.0); Mean Corpuscular Hgb Conc 31.8 g/dL (32.0-36.0); Mean Corpuscular Volume 89.1 fL (80.0-100.0); Mean Platelet Volume 9.1 fL (9.4-12.4); Platelet Count 157 K/uL (130-400); RDW Coefficient of Variation 13.1 % (11.5-14.5); RDW Standard Deviation 42.8 fL (36.4-46.3); Red Blood Count 4.31 M/uL (4.20-5.40); White Blood Count 16.66 K/ul (4.8-10.8)
[2023-10-28 08:29] LABS: Estimated Average Glucose 146 mg/dl; Hemoglobin A1C 6.7 % (4.5-5.6)
[2023-10-28 08:30] LABS: BUN Creatinine Ratio 25.9 (10-20); Calcium 9.4 mg/dl (8.6-10.3); Creatinine Clr Calc Pharmacy 150.1 ml/min; Est GFR (Non-African American) 101.8 ml/min; Potassium 4.4 mmol/L (3.5-5.1)
[2023-10-28 13:33] LABS: EBV Nuclear Ag Antibody <18.00 U/mL
--- NOTE | 2023-10-28 17:44 | Discharge Summary ---
"Date of Service October 28, 2023 Admission HPI Per Admitting Provider Danielle is a 62F T2DM, HLD, hypothyroidism, COPD, tobacco use, and anxiety who presented for worsening dyspnea. ED Course: Fentanyl, Zofran, Methylprednisone, Levofloxacin Patient presented due to worsening dyspnea, coughing, and left sided rib/LUQ pain with radiation to shoulder. Patient notes that her respiratory symptoms are similar to prior COPD exacerbations, but the LUQ pain she has never experienced before. No generalized abdominal discomfort. No back pain. No nausea or emesis. Patient notes that she had rhinorrhea and postnasal drip 1 week ago, but had no associated throat pain, fevers, chills, or headaches. She has not experienced any change in her bowel/bladder habits. She was sitting in her office chair this afternoon when she noticed an acute worsening of her symptoms and ultimately decided to present to the ER. She has had no recent changes in her medications. She does not use oxygen at baseline, but does have a concentrator at home for occasional use. She notes that she had quit smoking for the last 6 months, but ultimately restarted 2 weeks ago. Unwilling to trial medical support for smoking sensation. Admission Exam Per Admitting Provider Gen: NAD, alert, interactive HEENT: Supple, no LAD, no thyromegaly, no JVD Resp:Labored (mild), inspiratory and expiratory wheezing throughout, diminished in LLL CV: tachycardic, regular, normal S1/S2, no M/R/G Abd: Soft, distended by adiposity, LUQ TTP, no hepatomegaly, tender palpable spleen, normoactive bowels, unable to appreciate pulsatile abdominal mass Extr: 2+ dp bilaterally, trace LE edema Skin: No rashes lesions or erythema Principal Diagnosis COPD exacerbation, AAA, Splenomegaly Discharge Exam General: Alert and oriented. No acute distress Cardiac: Regular rate and rhythm, no murmurs appreciated Respiratory: Diminished lung sounds throughout but no wheezes, rhonchi appreciated. No accessory muscle use, no conversational dyspnea. Abdominal: Soft, non-tender, non-distended. Bowel sounds present. Extremities: No lower extremity edema Discharge Data Allergies Allergy/AdvReac Type Severity Reaction Status Date / Time No Known Allergies Allergy Verified 10/27/23 01:51 Consultations 10/27/23 02:11 ED Decision to Admit Stat 10/27/23 06:07 Consult Vascular Surgery Routine 10/27/23 15:52 Consult Hematology Routine Ordered Studies 10/26/23 23:54 CT Abd and Pelvis [CT abd pelvis IV con only] Stat Hospital Course (1) COPD exacerbation: (2) Abdominal pain, left upper quadrant: (3) Abdominal aortic aneurysm: (4) Dyslipidemia: (5) Type 2 diabetes mellitus: (6) Hypothyroidism: (7) Tobacco use disorder: (8) Anxiety: Renu Santos is a 62F T2DM, HLD, hypothyroidism, COPD, tobacco use, and anxiety who presented for worsening dyspnea. COPD Exacerbation +/- Viral PNA - Presented with acutely increased dyspnea and cough with new O2 requirement - Recent URI sx (rhinorrhea/postnasal drip) 1 week ago - Slight leukocytosis w/ elevated neutrophils, negative procalcitonin - CXR w/o evidence of consolidation - Treated with steroids, recommend completing burst of PO prednisone, 40mg daily for 3 more days after discharge - Complete 5 day course of Azithromycin - Continue home inhalers - Provided smoking cessation education, continue to address in outpatient setting Splenomegaly | Thrombocytopenia (119L) - Splenomegaly evidenced on CTAP, likely cause of patient's LUQ pain/referred shoulder pain Respiratory biofire negative EBV titers pending, follow up on results Tick-borne labs negative, no evidence on peripheral smear Peripheral smear significant for atypical lymphocytes - sent for flow cytometry, still pending at time of discharge Heme consulted due to splenomegaly and atypical lymphocytes, patient to follow up with hematology in outpatient setting New Abdominal Aortic Aneurysms x 2 - Patient with longstanding smoking hx - Now with AAAs of 4.0 x 4.1 (5.8 cm long) and 3.7 x 3.4 (2.7 cm long) - Patient to follow up in with vascular surgery in outpatient setting in 6 months - Patient started on Carvedilol, aspirin, Atorvastatin increased to 40 mg daily Chronic Conditions: T2DM: resume home regimen HLD: Continue home statin Hypothyroidism: Continue home Levothyroxine COPD: As above Tobacco use: As above Anxiety: No current medical management Total Time Total Time Spent Total Time Spent (In Minutes): <30 Discharge Plan Discharge Items Patient Disposition: Home - Self-Care Reason For Visit: COPD EXACERBATION, SPLENOMEGALY, NEW AAA Discharge Diagnosis: COPD exacerbation, splenomegaly, AAA Activity: Resume your previous activity Non-emergency contact: Primary Care Provider Call non-emergency contact if: you have any medication questions, your symptoms worsen and you have a fever Follow-up/Referrals: Susy Soto MD [Primary Care Provider] - 11/06/23 10:20 am Yefri Berry MD [Physician] - (Call our office to schedule an abdominal aortic ultrasound and office visit for 6 months after discharge.) Diet: Carb Consistent or DM2 Addtl Attending Provider Instructions: You were admitted to the hospital for abdominal pain - imaging showed that your spleen was enlarged. This is most likely related to a recent viral infection but we consulted hematology just to make sure we weren't missing something more significant. We recommend following up with hematology in the outpatient setting after all your lab results come back. You were also found to have 2 abdominal aortic aneurysms - we recommend following up with vascular surgery in 6 months to recheck this. Because of these aneurysms, we recommend starting some new medications (Aspirin, Carvedilol - instructions below) to reduce the risk of progression/rupture. Lastly, you were started on oral steroids and Azithromycin for a COPD exacerbation - please monitor you oxygen saturation while you are recovering and use your oxygen concentrator if your level falls below 88%. A discharge summary will be sent to your primary care physician to ensure continuity of care. Please bring this discharge summary with you to your next office appointment so that your provider can review it at that time. Medications: Your medication list has been reviewed and reconciled upon discharge to ensure accuracy and continuity of care. An updated list of all your medications is included with your hospital discharge paperwork. Please review this list closely and make note of any changes to your medications. New medications: Prednisone: Please take 40mg (2 tabs) once daily for 3 more days, starting on 10/28. Azithromycin: Please take 1 tab daily for 3 days Aspirin: Please take 1 tab once daily Carvedilol: Please take 1 tab twice daily Atorvastatin: We increased your dose to 40mg, please take 1 tab once daily Follow up appointments: - Make a follow up appointment with your PCP within the next week. It is very important that you follow up with them shortly after discharge from the hospital. - Keep all of your follow up appointments as already scheduled. If you cannot make an appointment, notify your provider. CONTACT YOUR PRIMARY CARE PROVIDER if you experience any of the following: - Difficulty following your treatment plan - Difficulty taking any of your medications CALL 911 OR GO TO THE EMERGENCY DEPARTMENT if you experience any of the following: - Sudden, severe abdominal pain or nausea/vomiting - Severe chest pain or chest pain that radiates to your jaw or arm - Sudden, severe shortness of breath or difficulty breathing Pending Studies at Discharge: No Stand-Alone Forms: [facility], Work/School Release, Smoking Cessation Medications and DC Order Prescriptions: New prednisone 20 mg Tablet 40 mg PO DAILY 3 Days Qty: 6 0RF aspirin 81 mg capsule 81 mg PO DAILY Qty: 30 0RF carvedilol 3.125 mg tablet 3.125 mg PO BID Qty: 60 0RF Rx Instructions: must administer with a meal/food atorvastatin 40 mg tablet 40 mg PO DAILY Qty: 30 0RF azithromycin 250 mg tablet 250 mg PO DAILY 3 Days Qty: 3 0RF Continued albuterol sulfate 2.5 mg /3 mL (0.083 %) solution for nebulization 2.5 mg INH QID PRN (Reason: shortness of breath or wheezing) Qty: 180 3RF Incruse Ellipta 62.5 mcg/actuation blister with device 1 inh inhalation Q24H Qty: 30 5RF albuterol sulfate [ProAir HFA] 90 mcg/actuation HFA aerosol inhaler 1 - 2 puff INHALATION Q6H PRN (Reason: Shortness Of Breath) Qty: 6.7 5RF levothyroxine 200 mcg tablet 200 mcg PO DAILY Qty: 90 3RF ibuprofen 200 mg Tablet 200 mg PO Q6H PRN (Reason: Pain) guaifenesin [Mucinex] 600 mg Tablet Extended Release 12hr 600 mg PO Q12H PRN (Reason: Congestion) Saline Mist 0.65 % Aerosol,[place] 2 sprays JODI Q1H PRN (Reason: nasal congestion) Qty: 30 0RF Rx Instructions: Please give her bottle from the hospital Discontinued atorvastatin 20 mg tablet 20 mg PO QPM Qty: 90 3RF prednisone 10 mg tablet See Rx Instructions PO DAILY Qty: 30 0RF Rx Instructions: 4 tabs for 3 days, then 3 tabs for 3 days, then 2 tabs for 3 days, then 1 tab for 3 days. PO DAILY; Discharge Orders: Discharge Order (Routine); Ordered 10/28/23 Ordered By: Brandon Cameron/Other Patient Handouts: Diabetes: Meal Planning, Type 2 Diabetes Admission Data Admit Date/Time: 10/27/23 04:16 Attending Provider: Terrence Gomez Admit Provider: Cesar Lin Primary Care Provider: Susy Soto Other Providers: Jahaira Byers; Yefri Berry; Homa Jackson Other Interventions: Discharge Summary Assessment (RN) Last Done: 10/28/23 17:11 Supervising Physician Co-Signing Physician Notes I personally examined the patient and verified all blanca points of history and exam, discussed case, and agree with decision making with Dr Vasquez feeling better, feeling up to going home. At the time I saw her was still awaiting hematology inputinput greatly appreciated. Vitals noted, in general she is awake and alert pleasant no distress. HEENT normocephalic atraumatic mucous membranes moist. Breathing unlabored no accessory muscle use good effort. Skin shows no rashes no pallor or icterus. Presumably viral illnessthis would unite her COPD exacerbation splenomegaly and thrombocytopeniaat the same time it is a little bit odd, and appreciate hematology input in regards to her splenomegaly/thrombocytopenia and l ymphocytosis and will await flow cytometry and she will follow-up with hematology as an outpatient. safe/stable for homesteroids, discussed appropriate utilization of her home oxygen (I suspect she uses it less often than she might benefit from) outpatient follow-up with PCP as well. Splenomegaly/thrombocytopeniasee aboveawaiting flow cytometry, follow-up outpatient oncology. Aortic aneurysmssmoke cessation, aspirin, increase statin to moderate intensity, low-dose Coreg, outpatient follow-up, repeat imaging in about 6 months. Otherwise as above Resident Activity Tracking Resident Involvement: Resident Care Provided Care Provided: Adult Hospital Medicine"
--- NOTE | 2023-10-28 18:09 | Billing Data ---
Date of Service October 28, 2023 Coding Level of Care Code 76303 IN/OBS DISCH 30 MIN/LESS
[2023-10-30 12:47] LABS: Babesia microti DNA Not Detected (Not Detected)
== END 2023-10-28 18:01 | disposition home or self-care (01) | DRG 190 ==
LOC: SUATTDRO → ED 20:31 → SUATTDRO 10-27 04:16 → 2W 10-27 04:16